=== PATIENT | male | born 1955 | race Caucasian/White ===

== ENCOUNTER → 2016-10-12 | Outpatient (REF) | payer OTHER ==
[~2016-10-12] MED LIST: /ATOR40TA OR; /FENO48TA PO; /TIOT18INH; ALBU17IN INH; AMIT100T PO; AMIT50TA2; AMIT75TA PO; AMLO5TAB2 PO; ATOR1TAB18 PO; AVALIDE PO; BACT800T5 PO; CLAR5CHW PO; COSOPT OU; COZA50TA PO; DORZOLAMIDE HCL; DOXY100C PO; DRIS50002 PO; GABA300C2 PO; GABA600T3 PO; GLIM4TAB PO; HYDR25T PO; HYDR25TAB PO; INSULADS SC; LEVEMIR FLEX PEN; LEVEMIR FLEX PEN SQ; LOSA50TA20 PO; LYRI150C PO; METF500T4 PO; METFPOW4; MUCINEX; MUCINEX PO; NASA1SPR; NASONEX; NOVOINJ3 SC; PERC5TAB6 PO; PREG100CA OR; PREG50CA OR; RYZOLT PO; SIMV40TA2; SIMV80TA; SING10TA31; SING10TA32 PO; SOMA350T; SOMA350T PO; STRO3TAB PO; TIZA4CAP3 PO; TRAM50TA2 PO; VENTAER INH; VICO5TAB; VICODINES TAB; VITAMIN D PO; XALATAN; [UNRECOGNIZED DRUG - OTHER] SUBQ; xalatan OU
[2016-10-12 18:33] LABS: ALBUMIN 3.1 GM/DL (3.2-5.2); ALBUMIN/GLOBULIN RATIO 0.84 (1.00-1.93); ALKALINE PHOSPHATASE 133 U/L (45-117); ALT/SGPT 49 U/L (12-78); ANION GAP 8 MEQ/L (8-16); AST/SGOT 27 U/L (15-37); BILIRUBIN,TOTAL 0.3 MG/DL (0.2-1.0); BLOOD UREA NITROGEN 19 MG/DL (7-18); CALCIUM LEVEL 8.6 MG/DL (8.8-10.2); CARBON DIOXIDE LEVEL 26 MEQ/L (21-32); CHLORIDE LEVEL 104 MEQ/L (98-107); CREATININE FOR GFR 1.17 MG/DL (0.70-1.30); GLOMERULAR FILTRATION RATE > 60.0 (>49); GLUCOSE, FASTING 335 MG/DL (80-110); POTASSIUM SERUM 4.4 MEQ/L (3.5-5.1); SODIUM LEVEL 138 MEQ/L (136-145); TOTAL PROTEIN 6.8 GM/DL (6.4-8.2)
[2016-10-12 18:49] LABS: BASO % 0.4 % (0.0-1.0); EOS # 0.1 K/mm3 (0.0-0.50); EOS % 1.3 % (0.0-3.0); LARGE UNSTAINED CELL # 0.2 K/mm3 (0.0-0.4); LARGE UNSTAINED CELL % 1.6 % (0.0-4.0); LYMPH # 2.3 K/mm3 (1.5-4.5); LYMPH % 24.4 % (24.0-44.0); MEAN CORPUSCULAR HEMOGLOBIN 27.7 pg (27.0-33.0); MEAN CORPUSCULAR VOLUME 89.3 fl (80.0-96.0); MONO # 0.4 K/mm3 (0.0-0.8); MONO % 4.7 % (0.0-5.0); NEUTROPHILS # 6.3 K/mm3 (1.8-7.7); NEUTROPHILS % 67.6 % (36.0-66.0); PLATELET COUNT, AUTOMATED 296 k/mm3 (150-450); RED CELL DISTRIBUTION WIDTH 13.1 % (11.5-14.5); WHITE BLOOD COUNT 9.3 K/mm3 (4.0-10.0)
[2016-10-12 19:51] LABS: ERYTHROCYTE SEDIMENTATION RATE 23 mm/hr (0-20)
== END ==
LOC: M LABNEURO 11:36
PROVIDERS: ATTEND Psychiatry & Neurology Neurology
DX: E11.9 Type 2 diabetes mellitus without complications (principal)

== ENCOUNTER → 2016-12-01 | Outpatient (CLI) | payer OTHER ==
[2016-12-01 08:01] LABS: ALBUMIN 3.2 GM/DL (3.2-5.2); ALBUMIN/GLOBULIN RATIO 0.84 (1.00-1.93); BILIRUBIN,TOTAL 0.3 MG/DL (0.2-1.0); CALCIUM LEVEL 8.5 MG/DL (8.8-10.2); CREATININE FOR GFR 1.3 MG/DL (0.70-1.30); GLOMERULAR FILTRATION RATE 59.9 (>49); POTASSIUM SERUM 4.6 MEQ/L (3.5-5.1)
== END ==
LOC: M LAB 06:45
PROVIDERS: ATTEND Physician Assistant
DX: E11.21 Type 2 diabetes mellitus with diabetic nephropathy (principal); E78.2 Mixed hyperlipidemia

== ENCOUNTER → 2016-12-01 | Outpatient (CLI) | payer OTHER ==
[2016-12-01 07:41] LABS: BASO % 0.5 % (0.0-1.0); EOS # 0.2 K/mm3 (0.0-0.50); EOS % 2.1 % (0.0-3.0); LARGE UNSTAINED CELL # 0.3 K/mm3 (0.0-0.4); LARGE UNSTAINED CELL % 2.8 % (0.0-4.0); LYMPH # 2.6 K/mm3 (1.5-4.5); LYMPH % 27.7 % (24.0-44.0); MEAN CORPUSCULAR HEMOGLOBIN 29.2 pg (27.0-33.0); MEAN CORPUSCULAR HGB CONC 32.2 g/dl (32.0-36.5); MEAN CORPUSCULAR VOLUME 90.8 fl (80.0-96.0); MONO # 0.5 K/mm3 (0.0-0.8); MONO % 5.6 % (0.0-5.0); NEUTROPHILS # 5.9 K/mm3 (1.8-7.7); NEUTROPHILS % 61.3 % (36.0-66.0); PLATELET COUNT, AUTOMATED 261 k/mm3 (150-450); RED CELL DISTRIBUTION WIDTH 13.9 % (11.5-14.5); WHITE BLOOD COUNT 9.6 K/mm3 (4.0-10.0)
[2016-12-01 07:59] LABS: ALBUMIN 3.2 GM/DL (3.2-5.2); ANION GAP 9 MEQ/L (8-16); BLOOD UREA NITROGEN 30 MG/DL (7-18); CALCIUM LEVEL 8.5 MG/DL (8.8-10.2); CARBON DIOXIDE LEVEL 22 MEQ/L (21-32); CHLORIDE LEVEL 109 MEQ/L (98-107); CREATININE FOR GFR 1.29 MG/DL (0.70-1.30); GLOMERULAR FILTRATION RATE > 60.0 (>49); GLUCOSE, FASTING 169 MG/DL (80-110); PHOSPHORUS LEVEL 3.1 MG/DL (2.5-4.9); POTASSIUM SERUM 4.7 MEQ/L (3.5-5.1); SODIUM LEVEL 140 MEQ/L (136-145)
== END ==
LOC: M LAB 06:50
PROVIDERS: ATTEND Internal Medicine Nephrology
DX: N18.3 Chronic kidney disease, stage 3 (moderate) (principal); D64.9 Anemia, unspecified

== ENCOUNTER → 2016-12-29 | Outpatient (CLI) | payer OTHER ==
[~2016-12-29] MED LIST changes: +OXYC1TAB23 PO; +TOUJ1.2I SC
[2016-12-29 13:43] LABS: MEAN CORPUSCULAR HEMOGLOBIN 28.6 pg (27.0-33.0); MEAN CORPUSCULAR HGB CONC 32.4 g/dl (32.0-36.5); MEAN CORPUSCULAR VOLUME 88.5 fl (80.0-96.0); RED CELL DISTRIBUTION WIDTH 13.8 % (11.5-14.5); WHITE BLOOD COUNT 10.3 K/mm3 (4.0-10.0)
[2016-12-29 16:04] LABS: CALCIUM LEVEL 8.8 MG/DL (8.8-10.2); CREATININE FOR GFR 1.38 MG/DL (0.70-1.30); GLOMERULAR FILTRATION RATE 55.8 (>49); POTASSIUM SERUM 4.3 MEQ/L (3.5-5.1)
== END ==
LOC: M LAB 13:00
PROVIDERS: ATTEND Podiatrist Foot & Ankle Surgery
DX: L03.031 Cellulitis of right toe (principal)

== ENCOUNTER → 2017-01-03 | Day surgery (SDC) | payer OTHER ==
[~2017-01-03] VITALS: Ht 175.3 cm; Wt 129.7 kg
[~2017-01-03] MED LIST changes: +BUPIVACAINE HCL 0.5% 10 ML VIAL As Ordered ONE; +KETOROLAC 60 MG/2 ML VIAL (J1885) As Ordered ONE; +LIDOCAINE 1% MDV 20ML VIAL As Ordered ONE; +LR 1,000 ML IV ONE; +MIDAZOLAM INJ 2 MG/2 ML VIAL (J2250) As Ordered ONE; +ONDANSETRON 4MG/2ML VIAL (J2405) As Ordered ONE; +PROPOFOL 200 MG/20 ML VIAL As Ordered ONE; +dexameTHASONE 4 MG/ML 1ML VIAL (J1100) As Ordered ONE; +fentaNYL 100 MCG/2 ML INJECTION (J3010) As Ordered ONE
[2017-01-03] MEDS: dexameTHASONE 4 MG/ML 1ML VIAL (J1100) As Ordered ONE ×2 (10:27→11:17)
[2017-01-03 13:30] VITALS: BP 172/77
--- NOTE | 2017-01-03 23:37 | RO ---
DATE OF PROCEDURE: 01/03/2017 PREPROCEDURE DIAGNOSIS: Right foot 2nd toe osteomyelitis. POSTPROCEDURE DIAGNOSIS: Right foot 2nd toe osteomyelitis. PROCEDURE: Right 2nd toe partial amputation. SURGEON: Pasha Figueroa DPM TROUBLE OPERATOR: None. ANESTHESIA: Monitored anesthesia care with perioperative injection of 10 mL of 1:1 mixture of 1% lidocaine plain and 0.5% Marcaine plain. ESTIMATED BLOOD LOSS: Minimal. MATERIALS: #3-0 nylon. INJECTABLES: None. COMPLICATIONS: None. SPECIMEN: Right 2nd toe. CONDITION: Stable. Jordan Sullivan is a 61-year-old male who presented to [facility] with right 2nd toe wound. In the office, wound was noted to be progressively worsening, had positive probe to bone with necrosis at the distal toe; decision was made to bring him to the operating room for 2nd toe amputation. The patient's side and site were identified and marked in the preoperative holding area. Consent was reviewed and obtained. All risks, complications and alternatives to the procedure were explained to the patient in detail. All questions were answered. DESCRIPTION OF PROCEDURE: The patient was brought to the operating room, placed on the operating table in supine position, monitored anesthesia care was delivered by the anesthesia team. Perioperative injection of 10 mL of a 1:1 mixture of 1% lidocaine plain and 0.5% Marcaine plain were injected into the right foot. The right foot was prepped and draped in the normal sterile fashion. A tourniquet was applied but not inflated during the procedure. The patient received Ancef preoperatively. A racquet-type incision was made at the 2nd toe, and the 2nd toe was disarticulated using a #15 blade at the proximal interphalangeal joint. The middle and proximal phalanx appeared free of infection. There was necrotic tissue noted at the distal phalanx with some erosion to the bone. This was sent for pathology. The head of the proximal phalanx was resected with bone cutter for closure purposes due to location of wound. Site was irrigated with normal saline and debrided free of any further necrotic tissue. Once wound appeared clean, this was closed using #3-0 nylon. Sterile dressing were applied. The patient was brought to the post-anesthesia care unit (PACU), vital signs stable, neurovascular status intact. He will be weightbearing as tolerated with followup in 2 days.
== END | disposition home or self-care (01) ==
LOC: M SDC 08:30
PROVIDERS: ATTEND Podiatrist Foot & Ankle Surgery
DX: L03.031 Cellulitis of right toe (principal); I12.9 Hypertensive chronic kidney disease with stage 1 through stage 4 chronic kidney disease, or unspecified chronic kidney disease; E11.9 Type 2 diabetes mellitus without complications; N18.3 Chronic kidney disease, stage 3 (moderate); E78.5 Hyperlipidemia, unspecified; J44.9 Chronic obstructive pulmonary disease, unspecified; Z91.040 Latex allergy status; Z88.8 Allergy status to other drugs, medicaments and biological substances; Z79.899 Other long term (current) drug therapy; Z87.891 Personal history of nicotine dependence; Z79.51 Long term (current) use of inhaled steroids

== ENCOUNTER → 2017-03-03 | Outpatient (CLI) | payer OTHER ==
[~2017-03-03] MED LIST changes: -ATOR1TAB18 PO; +ATOR80TA59 PO; -BUPIVACAINE HCL 0.5% 10 ML VIAL As Ordered ONE; +HYDR-3363 PO; -HYDR25T PO; -KETOROLAC 60 MG/2 ML VIAL (J1885) As Ordered ONE; -LIDOCAINE 1% MDV 20ML VIAL As Ordered ONE; -LR 1,000 ML IV ONE; -MIDAZOLAM INJ 2 MG/2 ML VIAL (J2250) As Ordered ONE; -ONDANSETRON 4MG/2ML VIAL (J2405) As Ordered ONE; +PERC5TAB12 PO; -PERC5TAB6 PO; -PROPOFOL 200 MG/20 ML VIAL As Ordered ONE; -dexameTHASONE 4 MG/ML 1ML VIAL (J1100) As Ordered ONE; -fentaNYL 100 MCG/2 ML INJECTION (J3010) As Ordered ONE
[2017-03-03 10:41] LABS: BASO % 0.5 % (0.0-1.0); EOS # 0.1 K/mm3 (0.0-0.50); EOS % 1.6 % (0.0-3.0); LYMPH # 1.9 K/mm3 (1.5-4.5); LYMPH % 22.9 % (24.0-44.0); MEAN CORPUSCULAR HEMOGLOBIN 29.2 pg (27.0-33.0); MEAN CORPUSCULAR HGB CONC 32.5 g/dl (32.0-36.5); MEAN CORPUSCULAR VOLUME 89.9 fl (80.0-96.0); MONO # 0.4 K/mm3 (0.0-0.8); NEUTROPHILS # 5.6 K/mm3 (1.8-7.7); NEUTROPHILS % 67.7 % (36.0-66.0); RED CELL DISTRIBUTION WIDTH 13.9 % (11.5-14.5); WHITE BLOOD COUNT 8.3 K/mm3 (4.0-10.0)
[2017-03-03 11:08] LABS: ALBUMIN 3.1 GM/DL (3.2-5.2); ALBUMIN/GLOBULIN RATIO 0.86 (1.00-1.93); ALKALINE PHOSPHATASE 128 U/L (45-117); ALT/SGPT 61 U/L (12-78); ANION GAP 9 MEQ/L (8-16); AST/SGOT 39 U/L (15-37); BILIRUBIN,TOTAL 0.4 MG/DL (0.2-1.0); BLOOD UREA NITROGEN 21 MG/DL (7-18); CALCIUM LEVEL 8.9 MG/DL (8.8-10.2); CARBON DIOXIDE LEVEL 27 MEQ/L (21-32); CHLORIDE LEVEL 109 MEQ/L (98-107); CHOLESTEROL LEVEL 163 MG/DL (<200); CREATININE FOR GFR 1.12 MG/DL (0.70-1.30); GLOMERULAR FILTRATION RATE > 60.0 (>49); GLUCOSE, FASTING 144 MG/DL (80-110); POTASSIUM SERUM 4.3 MEQ/L (3.5-5.1); SODIUM LEVEL 145 MEQ/L (136-145); TOTAL PROTEIN 6.7 GM/DL (6.4-8.2); TRIGLYCERIDES LEVEL 117 MG/DL (<150)
== END ==
LOC: M LAB 09:46
PROVIDERS: ATTEND Physician Assistant Medical
DX: E11.9 Type 2 diabetes mellitus without complications (principal)

== ENCOUNTER → 2017-04-29 | Outpatient (CLI) | payer OTHER ==
[2017-04-29 08:21] LABS: BASO # 0.1 10^3/uL (0.0-0.2); BASO % 0.5 % (0.0-1.0); EOS # 0.2 10^3/uL (0.0-0.50); EOS % 1.9 % (0.0-3.0); IMMATURE GRANULOCYTE % 0.6 % (0-0); LYMPH # 2.8 10^3/uL (1.5-4.5); LYMPH % 28.8 % (24.0-44.0); MEAN CORPUSCULAR HEMOGLOBIN 28.4 pg (27.0-33.0); MEAN CORPUSCULAR HGB CONC 31.6 g/dl (32.0-36.5); MEAN CORPUSCULAR VOLUME 89.9 fl (80.0-96.0); MONO # 0.7 10^3/uL (0.0-0.8); MONO % 6.7 % (0.0-5.0); NEUTROPHILS # 6.1 10^3/uL (1.8-7.7); NEUTROPHILS % 61.5 % (36.0-66.0); RED CELL DISTRIBUTION WIDTH 13.5 % (11.5-14.5); WHITE BLOOD COUNT 9.8 10^3/uL (4.0-10.0)
[2017-04-29 08:59] LABS: CALCIUM LEVEL 8.4 MG/DL (8.8-10.2); CREATININE FOR GFR 1.35 MG/DL (0.70-1.30); GLOMERULAR FILTRATION RATE 57.2 (>49); POTASSIUM SERUM 4.6 MEQ/L (3.5-5.1)
[2017-04-29 09:00] LABS: ALBUMIN 3.1 GM/DL (3.2-5.2); ALBUMIN/GLOBULIN RATIO 0.91 (1.00-1.93); BILIRUBIN,TOTAL 0.2 MG/DL (0.2-1.0); TOTAL PROTEIN 6.5 GM/DL (6.4-8.2)
== END ==
LOC: M LAB 07:31
PROVIDERS: ATTEND Physician Assistant Medical
DX: E11.9 Type 2 diabetes mellitus without complications (principal)

== ENCOUNTER → 2017-09-16 | Outpatient (CLI) | payer OTHER ==
[2017-09-16 07:14] LABS: HEMATOCRIT 43.8 % (42.0-52.0); HEMOGLOBIN 14.1 g/dl (14.0-18.0); MEAN CORPUSCULAR HGB CONC 32.2 g/dl (32.0-36.5); MEAN CORPUSCULAR VOLUME 86.9 fl (80.0-96.0); PLATELET COUNT, AUTOMATED 297 10^3/uL (150-450); RED BLOOD COUNT 5.04 10^6/uL (4.30-6.10); RED CELL DISTRIBUTION WIDTH 13.2 % (11.5-14.5); WHITE BLOOD COUNT 10.9 10^3/uL (4.0-10.0)
[2017-09-16 07:32] LABS: ESTIMATED AVERAGE GLUCOSE 169 MG/DL (60-110); HEMOGLOBIN A1c 7.5 %
[2017-09-16 07:45] LABS: ALBUMIN/GLOBULIN RATIO 0.86 (1.00-1.93); ALKALINE PHOSPHATASE 134 U/L (45-117); ALT/SGPT 58 U/L (12-78); ANION GAP 8 MEQ/L (8-16); AST/SGOT 38 U/L (7-37); BILIRUBIN,TOTAL 0.3 MG/DL (0.2-1.0); BLOOD UREA NITROGEN 24 MG/DL (7-18); CALCIUM LEVEL 8.6 MG/DL (8.8-10.2); CARBON DIOXIDE LEVEL 27 MEQ/L (21-32); CHLORIDE LEVEL 107 MEQ/L (98-107); CHOLESTEROL LEVEL 162 MG/DL (<200); CREATININE FOR GFR 1.13 MG/DL (0.70-1.30); GLOMERULAR FILTRATION RATE > 60.0 (>49); GLUCOSE, FASTING 153 MG/DL (70-100); HDL CHOLESTEROL 45 MG/DL (>40); LDL CHOLESTEROL 73.6 MG/DL (<100); NON-HDL-C 117 MG/DL; POTASSIUM SERUM 4.5 MEQ/L (3.5-5.1); PROSTATIC SPECIFIC AG MONITOR 0.36 NG/ML (< 4.0); SODIUM LEVEL 142 MEQ/L (136-145); TOTAL PROTEIN 6.5 GM/DL (6.4-8.2); TRIGLYCERIDES LEVEL 217 MG/DL (<150)
[2017-09-16 08:41] LABS: TOTAL 25(OH) VITAMIN D 30.2 NG/ML (30.0-100.0)
== END ==
LOC: M LAB 06:19
DX: I10 Essential (primary) hypertension (principal); E11.9 Type 2 diabetes mellitus without complications
CPT/HCPCS: 71046

== ENCOUNTER 2018-04-26 13:07 | Inpatient (IN) | payer OTHER ==
[2018-04-26] MEDS: NS 1,000 ML IV ×4 (14:00→18:54)
[2018-04-26] MEDS: INSULIN HUMAN REGULAR 100 UNITS in NS 99 ML IV ×2 (14:17→18:00)
[2018-04-26] MEDS ORDERED: INSULIN HUMAN REGULAR 100 UNITS in NS 99 ML IV ×2 (14:30→15:35)
[2018-04-26 14:45] LABS: BASO # 0.1 10^3/uL (0.0-0.2); BASO % 0.4 % (0.0-1.0); EOS # 0.1 10^3/uL (0.0-0.50); EOS % 0.5 % (0.0-3.0); HEMATOCRIT 44.9 % (42.0-52.0); IMMATURE GRANULOCYTE % 0.5 % (0-3.0); LYMPH # 2.7 10^3/uL (1.5-4.5); LYMPH % 20.3 % (24.0-44.0); MEAN CORPUSCULAR HEMOGLOBIN 28.6 pg (27.0-33.0); MEAN CORPUSCULAR HGB CONC 33.4 g/dl (32.0-36.5); MEAN CORPUSCULAR VOLUME 85.7 fl (80.0-96.0); MONO # 0.8 10^3/uL (0.0-0.8); MONO % 6.1 % (0.0-5.0); NEUTROPHILS # 9.5 10^3/uL (1.8-7.7); NEUTROPHILS % 72.2 % (36.0-66.0); PLATELET COUNT, AUTOMATED 217 10^3/uL (150-450); RED BLOOD COUNT 5.24 10^6/uL (4.30-6.10); WHITE BLOOD COUNT 13.1 10^3/uL (4.0-10.0)
[2018-04-26 14:51] LABS: KETONE, URINE AUTO RFX TRACE mg/dL (NEGATIVE); LEUKOCYTE ESTERASE UR AUTO RFX NEGATIVE (NEGATIVE); NITRITE, URINE AUTO RFX NEGATIVE (NEGATIVE); RBC, URINE AUTO RFX 15 /HPF (0-3); SPECIFIC GRAVITY UR AUTO RFX 1.021 (1.002-1.035); SQUAM EPITHELIAL CELL UR AURFX 0 /HPF (0-6); WBC, URINE AUTO RFX 0 /HPF (0-3)
[2018-04-26 15:10] LABS: AMPHETAMINES LEVEL URINE NEGATIVE (NEGATIVE); BARBITURATES URINE NEGATIVE (NEGATIVE); BENZODIAZEPINES URINE NEGATIVE (NEGATIVE); CANNABINOIDS URINE POSITIVE (NEGATIVE); COCAINE METABOLITE URINE NEGATIVE (NEGATIVE); METHADONE URINE NEGATIVE (NEGATIVE); OPIATES URINE NEGATIVE (NEGATIVE); PHENCYCLIDINE URINE NEGATIVE (NEGATIVE)
[2018-04-26 15:15] LABS: ACETAMINOPHEN LEVEL < 2.0 UG/ML (10.0-30.0); ALBUMIN 3.5 GM/DL (3.2-5.2); ALBUMIN/GLOBULIN RATIO 0.97 (1.00-1.93); ALKALINE PHOSPHATASE 125 U/L (45-117); ALT/SGPT 52 U/L (12-78); ANION GAP 17 MEQ/L (8-16); AST/SGOT 26 U/L (7-37); BILIRUBIN,DIRECT 0.2 MG/DL (0.0-0.2); BILIRUBIN,TOTAL 0.6 MG/DL (0.2-1.0); BLOOD UREA NITROGEN 45 MG/DL (7-18); CALCIUM LEVEL 9.6 MG/DL (8.8-10.2); CARBON DIOXIDE LEVEL 19 MEQ/L (21-32); CHLORIDE LEVEL 90 MEQ/L (98-107); CPK CREATINE PHOSPHOKINASE 545 U/L (39-308); CREATININE FOR GFR 1.69 MG/DL (0.70-1.30); ETHYL ALCOHOL (ETHANOL) < 0.003 % (0.000-0.010); GLUCOSE, FASTING 817 MG/DL (70-100); LIPASE 165 U/L (73-393); MB/CK RELATIVE INDEX 1.93 (< OR =4); POTASSIUM SERUM 5.5 MEQ/L (3.5-5.1); SALICYLATE LEVEL 3.1 MG/DL (5.0-30.0); SODIUM LEVEL 126 MEQ/L (136-145); TOTAL PROTEIN 7.1 GM/DL (6.4-8.2); TROPONIN I 0.04 NG/ML (< 0.10)
[2018-04-26 15:17] LABS: VENOUS BASE EXCESS -4.2 (-2.0-2.0); VENOUS HCO3 20.3 MEQ/L (23.0-27.0); VENOUS O2 SATURATION 97.5 % (60.0-80.0); VENOUS PARTIAL PRESSURE CO2 35.7 mmHg (38.0-50.0); VENOUS PARTIAL PRESSURE O2 100.5 mmHg (30.0-50.0); VENOUS PH 7.372 UNITS (7.330-7.430); VENOUS TOTAL CO2 21.4 MEQ/L (24.0-28.0)
[2018-04-26] MEDS ORDERED: INSULIN IV RATE CHANGE DOCUMENTATION ML/HR XX (15:45)
[2018-04-26 16:02] LABS: ESTIMATED AVERAGE GLUCOSE 344 MG/DL (60-110); HEMOGLOBIN A1c 13.6 %
[2018-04-26 16:52] LABS: BEDSIDE GLUCOSE 500 MG/DL (80-115)
[2018-04-26] MEDS: INSULIN IV RATE CHANGE DOCUMENTATION ML/HR XX ×5 (17:03→23:19)
[2018-04-26 17:25] LABS: OSMOLALITY SERUM 321 MOSM/KG (280-301)
[2018-04-26 17:30] LABS: BEDSIDE GLUCOSE 470 MG/DL (80-115)
[2018-04-26] MEDS ORDERED: ALBUTEROL 90 MCG/ACT 8GM HFA INHALER INH (17:45)
[2018-04-26 17:47] LABS: ACETONE/KETONE 26.83 MG/DL (<2.81)
[2018-04-26 17:47] LABS: URIC ACID 9.8 MG/DL (3.5-7.2)
[2018-04-26 18:14] LABS: BEDSIDE GLUCOSE 481 MG/DL (80-115)
[2018-04-26] MEDS: amLODIPine 10 MG TAB PO (18:53)
[2018-04-26] MEDS: ATENOLOL 50 MG TAB PO (18:53)
[2018-04-26] MEDS: LOSARTAN 50 MG TAB PO (18:54)
[2018-04-26 19:01] LABS: LACTIC ACID SEPSIS PROTOCOL 1.5 MMOL/L (0.4-2.0)
[2018-04-26 19:03] LABS: BEDSIDE GLUCOSE 366 MG/DL (80-115)
[2018-04-26 19:24] LABS: ANION GAP 10 MEQ/L (8-16); BLOOD UREA NITROGEN 38 MG/DL (7-18); CALCIUM LEVEL 8.6 MG/DL (8.8-10.2); CARBON DIOXIDE LEVEL 23 MEQ/L (21-32); CHLORIDE LEVEL 104 MEQ/L (98-107); CPK CREATINE PHOSPHOKINASE 461 U/L (39-308); CREATININE FOR GFR 1.51 MG/DL (0.70-1.30); GLOMERULAR FILTRATION RATE 50.1 (>49); GLUCOSE, FASTING 363 MG/DL (70-100); MB/CK RELATIVE INDEX 1.87 (< OR =4); PHOSPHORUS LEVEL 2.8 MG/DL (2.5-4.9); POTASSIUM SERUM 3.9 MEQ/L (3.5-5.1); SODIUM LEVEL 137 MEQ/L (136-145); TROPONIN I < 0.02 NG/ML (< 0.10)
[2018-04-26 20:11] LABS: BEDSIDE GLUCOSE 330 MG/DL (80-115)
[2018-04-26 20:51] LABS: ANION GAP 10 MEQ/L (8-16); BLOOD UREA NITROGEN 40 MG/DL (7-18); CALCIUM LEVEL 8.8 MG/DL (8.8-10.2); CARBON DIOXIDE LEVEL 23 MEQ/L (21-32); CHLORIDE LEVEL 104 MEQ/L (98-107); CREATININE FOR GFR 1.34 MG/DL (0.70-1.30); GLOMERULAR FILTRATION RATE 57.5 (>49); GLUCOSE, FASTING 313 MG/DL (70-100); POTASSIUM SERUM 3.9 MEQ/L (3.5-5.1); SODIUM LEVEL 137 MEQ/L (136-145)
[2018-04-26] MEDS: AMITRIPTYLINE 25 MG TAB PO (21:00)
[2018-04-26] MEDS: CEPHALEXIN 500 MG CAP PO (21:00)
[2018-04-26 21:08] LABS: BEDSIDE GLUCOSE 324 MG/DL (80-115)
[2018-04-26] MEDS: PREGABALIN 75 MG CAP(LYRICA) PO (21:16)
[2018-04-26] MEDS: HEPARIN SOD (PORCINE) 5000 UNITS/ML VIAL SC (21:18)
[2018-04-26] MEDS: ANEXSIA, NORCO 7.5MG/325MG TABLET(HYDROCODONE/APAP) PO (22:16)
[2018-04-26 22:18] LABS: BEDSIDE GLUCOSE 362 MG/DL (80-115)
[2018-04-26 22:55] LABS: ANION GAP 17 MEQ/L (8-16); BLOOD UREA NITROGEN 39 MG/DL (7-18); CALCIUM LEVEL 8.7 MG/DL (8.8-10.2); CARBON DIOXIDE LEVEL 22 MEQ/L (21-32); CHLORIDE LEVEL 122 MEQ/L (98-107); CREATININE FOR GFR 1.28 MG/DL (0.70-1.30); GLOMERULAR FILTRATION RATE > 60.0 (>49); GLUCOSE, FASTING 274 MG/DL (70-100); POTASSIUM SERUM 4.4 MEQ/L (3.5-5.1); SODIUM LEVEL 161 MEQ/L (136-145)
[2018-04-26 23:20] LABS: BEDSIDE GLUCOSE 220 MG/DL (80-115)
[2018-04-27 00:10] LABS: BEDSIDE GLUCOSE 245 MG/DL (80-115)
[2018-04-27] MEDS ORDERED: FLUBLOK(EGG FREE)(QUAD)INFLUENZA VACC 0.5ML SYRINGE (90682)18YRS&OLDER IM (00:15)
[2018-04-27 01:03] LABS: ANION GAP 8 MEQ/L (8-16); BLOOD UREA NITROGEN 37 MG/DL (7-18); CARBON DIOXIDE LEVEL 22 MEQ/L (21-32); CHLORIDE LEVEL 108 MEQ/L (98-107); CREATININE FOR GFR 1.25 MG/DL (0.70-1.30); GLOMERULAR FILTRATION RATE > 60.0 (>49); GLUCOSE, FASTING 254 MG/DL (70-100); POTASSIUM SERUM 3.9 MEQ/L (3.5-5.1); SODIUM LEVEL 138 MEQ/L (136-145)
[2018-04-27 02:19] LABS: BEDSIDE GLUCOSE 268 MG/DL (80-115)
[2018-04-27 03:07] LABS: ANION GAP 11 MEQ/L (8-16); BLOOD UREA NITROGEN 39 MG/DL (7-18); CALCIUM LEVEL 8.6 MG/DL (8.8-10.2); CARBON DIOXIDE LEVEL 22 MEQ/L (21-32); CHLORIDE LEVEL 106 MEQ/L (98-107); CPK CREATINE PHOSPHOKINASE 340 U/L (39-308); CREATININE FOR GFR 1.28 MG/DL (0.70-1.30); GLOMERULAR FILTRATION RATE > 60.0 (>49); GLUCOSE, FASTING 263 MG/DL (70-100); MB/CK RELATIVE INDEX 1.65 (< OR =4); POTASSIUM SERUM 4.2 MEQ/L (3.5-5.1); SODIUM LEVEL 139 MEQ/L (136-145); TROPONIN I 0.03 NG/ML (< 0.10)
[2018-04-27] MEDS: NS 1,000 ML IV ×4 (03:38→20:19)
[2018-04-27 03:53] LABS: BEDSIDE GLUCOSE 320 MG/DL (80-115)
[2018-04-27] MEDS: INSULIN IV RATE CHANGE DOCUMENTATION ML/HR XX ×2 (03:58→04:51)
[2018-04-27] MEDS: THIAMINE HCL 200 MG/2 ML VIAL (J3411) IV ×2 (04:00→09:22)
[2018-04-27 04:10] LABS: OSMOLALITY URINE 568 MOSM/KG (500-800)
[2018-04-27 04:49] LABS: BEDSIDE GLUCOSE 294 MG/DL (80-115)
[2018-04-27 05:42] LABS: BEDSIDE GLUCOSE 249 MG/DL (80-115)
[2018-04-27 05:47] LABS: ANION GAP 9 MEQ/L (8-16); BLOOD UREA NITROGEN 38 MG/DL (7-18); CALCIUM LEVEL 8.4 MG/DL (8.8-10.2); CARBON DIOXIDE LEVEL 24 MEQ/L (21-32); CHLORIDE LEVEL 106 MEQ/L (98-107); CREATININE FOR GFR 1.17 MG/DL (0.70-1.30); GLOMERULAR FILTRATION RATE > 60.0 (>49); GLUCOSE, FASTING 262 MG/DL (70-100); POTASSIUM SERUM 3.9 MEQ/L (3.5-5.1); SODIUM LEVEL 139 MEQ/L (136-145)
[2018-04-27] MEDS: HEPARIN SOD (PORCINE) 5000 UNITS/ML VIAL SC ×3 (06:33→21:36)
[2018-04-27] MEDS: LEVOTHYROXINE 75MCG TABLET (0.075MG) PO (06:33)
[2018-04-27 06:37] LABS: BEDSIDE GLUCOSE 281 MG/DL (80-115)
[2018-04-27] MEDS: INSULIN HUMAN REGULAR 100 UNITS in NS 99 ML IV (06:38)
[2018-04-27 07:00] LABS: ANION GAP 8 MEQ/L (8-16); BLOOD UREA NITROGEN 35 MG/DL (7-18); CALCIUM LEVEL 8.5 MG/DL (8.8-10.2); CARBON DIOXIDE LEVEL 24 MEQ/L (21-32); CHLORIDE LEVEL 108 MEQ/L (98-107); CREATININE FOR GFR 1.15 MG/DL (0.70-1.30); GLOMERULAR FILTRATION RATE > 60.0 (>49); GLUCOSE, FASTING 271 MG/DL (70-100); POTASSIUM SERUM 4.1 MEQ/L (3.5-5.1); SODIUM LEVEL 140 MEQ/L (136-145)
[2018-04-27] MEDS: INSULIN GLARGINE SC (07:00)
[2018-04-27 07:50] LABS: HEMATOCRIT 40.3 % (42.0-52.0); HEMOGLOBIN 13.3 g/dl (13.5-17.5); MEAN CORPUSCULAR HEMOGLOBIN 28.2 pg (27.0-33.0); MEAN CORPUSCULAR VOLUME 85.4 fl (80.0-96.0); PLATELET COUNT, AUTOMATED 229 10^3/uL (150-450); RED BLOOD COUNT 4.72 10^6/uL (4.30-6.10); WHITE BLOOD COUNT 12.6 10^3/uL (4.0-10.0)
[2018-04-27 08:12] LABS: BEDSIDE GLUCOSE 254 MG/DL (80-115)
[2018-04-27] MEDS: D5W/0.45% SODIUM CHLORIDE 1,000 ML IV (08:18)
[2018-04-27] MEDS ORDERED: LOSARTAN 50 MG TAB PO (09:00)
[2018-04-27] MEDS ORDERED: amLODIPine 10 MG TAB PO (09:00)
[2018-04-27 09:20] LABS: BEDSIDE GLUCOSE 255 MG/DL (80-115)
[2018-04-27] MEDS: ATORVASTATIN 20 MG TAB PO (09:21)
[2018-04-27] MEDS: TAMSULOSIN 0.4 MG CAP PO (09:21)
[2018-04-27] MEDS: CLOPIDOGREL 75 MG TAB PO (09:21)
[2018-04-27] MEDS: CEPHALEXIN 500 MG CAP PO ×4 (09:22→20:19)
[2018-04-27] MEDS: LACTIC ACID 12% LOTION 225 GM BTL TOP (09:22)
[2018-04-27 10:24] LABS: BEDSIDE GLUCOSE 270 MG/DL (80-115)
[2018-04-27 11:21] LABS: BEDSIDE GLUCOSE 268 MG/DL (80-115)
[2018-04-27] MEDS: MELOXICAM (MOBIC) 7.5 MG TAB PO (11:22)
[2018-04-27 11:29] LABS: ANION GAP 8 MEQ/L (8-16); BLOOD UREA NITROGEN 37 MG/DL (7-18); CALCIUM LEVEL 8.9 MG/DL (8.8-10.2); CARBON DIOXIDE LEVEL 26 MEQ/L (21-32); CHLORIDE LEVEL 105 MEQ/L (98-107); CPK CREATINE PHOSPHOKINASE 323 U/L (39-308); CREATININE FOR GFR 1.24 MG/DL (0.70-1.30); GLOMERULAR FILTRATION RATE > 60.0 (>49); GLUCOSE, FASTING 254 MG/DL (70-100); POTASSIUM SERUM 4.4 MEQ/L (3.5-5.1); SODIUM LEVEL 139 MEQ/L (136-145); TROPONIN I 0.02 NG/ML (< 0.10)
[2018-04-27 12:07] LABS: BEDSIDE GLUCOSE 321 MG/DL (80-115)
[2018-04-27 14:00] LABS: BEDSIDE GLUCOSE 294 MG/DL (80-115)
[2018-04-27 14:49] LABS: ANION GAP 9 MEQ/L (8-16); BLOOD UREA NITROGEN 31 MG/DL (7-18); CALCIUM LEVEL 8.5 MG/DL (8.8-10.2); CARBON DIOXIDE LEVEL 23 MEQ/L (21-32); CHLORIDE LEVEL 105 MEQ/L (98-107); CREATININE FOR GFR 1.22 MG/DL (0.70-1.30); GLOMERULAR FILTRATION RATE > 60.0 (>49); GLUCOSE, FASTING 294 MG/DL (70-100); POTASSIUM SERUM 4.6 MEQ/L (3.5-5.1); SODIUM LEVEL 137 MEQ/L (136-145)
[2018-04-27 15:14] LABS: BEDSIDE GLUCOSE 285 MG/DL (80-115)
[2018-04-27 16:25] LABS: BEDSIDE GLUCOSE 284 MG/DL (80-115)
[2018-04-27 16:55] LABS: ANION GAP 7 MEQ/L (8-16); BLOOD UREA NITROGEN 29 MG/DL (7-18); CALCIUM LEVEL 8.5 MG/DL (8.8-10.2); CARBON DIOXIDE LEVEL 25 MEQ/L (21-32); CHLORIDE LEVEL 105 MEQ/L (98-107); CREATININE FOR GFR 1.17 MG/DL (0.70-1.30); GLOMERULAR FILTRATION RATE > 60.0 (>49); GLUCOSE, FASTING 288 MG/DL (70-100); POTASSIUM SERUM 4.2 MEQ/L (3.5-5.1); SODIUM LEVEL 137 MEQ/L (136-145)
[2018-04-27 17:35] LABS: BEDSIDE GLUCOSE 273 MG/DL (80-115)
[2018-04-27 18:16] LABS: BEDSIDE GLUCOSE 280 MG/DL (80-115)
[2018-04-27 18:55] LABS: BEDSIDE GLUCOSE 257 MG/DL (80-115)
[2018-04-27 19:00] LABS: ANION GAP 10 MEQ/L (8-16); BLOOD UREA NITROGEN 33 MG/DL (7-18); CALCIUM LEVEL 9.1 MG/DL (8.8-10.2); CARBON DIOXIDE LEVEL 22 MEQ/L (21-32); CHLORIDE LEVEL 106 MEQ/L (98-107); CREATININE FOR GFR 1.19 MG/DL (0.70-1.30); GLOMERULAR FILTRATION RATE > 60.0 (>49); GLUCOSE, FASTING 272 MG/DL (70-100); POTASSIUM SERUM 4.3 MEQ/L (3.5-5.1); SODIUM LEVEL 138 MEQ/L (136-145)
[2018-04-27] MEDS: ANEXSIA, NORCO 7.5MG/325MG TABLET(HYDROCODONE/APAP) PO (20:51)
[2018-04-27 21:01] LABS: BEDSIDE GLUCOSE 249 MG/DL (80-115)
[2018-04-27] MEDS: [UNRECOGNIZED DRUG - OTHER] SC (22:39)
[2018-04-28 00:01] LABS: BEDSIDE GLUCOSE 290 MG/DL (80-115)
[2018-04-28 01:18] LABS: ANION GAP 7 MEQ/L (8-16); BLOOD UREA NITROGEN 24 MG/DL (7-18); CALCIUM LEVEL 7.8 MG/DL (8.8-10.2); CARBON DIOXIDE LEVEL 24 MEQ/L (21-32); CHLORIDE LEVEL 107 MEQ/L (98-107); GLOMERULAR FILTRATION RATE > 60.0 (>49); GLUCOSE, FASTING 282 MG/DL (70-100); POTASSIUM SERUM 3.9 MEQ/L (3.5-5.1); SODIUM LEVEL 138 MEQ/L (136-145)
[2018-04-28] MEDS ORDERED: GLUCAGON FOR INJ 1 MG VIAL (J1610) SC (01:30)
[2018-04-28] MEDS ORDERED: GLUCOSE 4 GM CHEW TABLET PO (01:30)
[2018-04-28] MEDS ORDERED: DEXTROSE 50% 50 ML SYRINGE IV (01:30)
[2018-04-28] MEDS: PREGABALIN 75 MG CAP(LYRICA) PO ×3 (02:00→21:23)
[2018-04-28] MEDS: NS 1,000 ML IV (03:59)
[2018-04-28 05:01] LABS: HEMATOCRIT 43.7 % (42.0-52.0); HEMOGLOBIN 13.7 g/dl (13.5-17.5); MEAN CORPUSCULAR HEMOGLOBIN 27.8 pg (27.0-33.0); MEAN CORPUSCULAR HGB CONC 31.4 g/dl (32.0-36.5); MEAN CORPUSCULAR VOLUME 88.8 fl (80.0-96.0); PLATELET COUNT, AUTOMATED 182 10^3/uL (150-450); RED BLOOD COUNT 4.92 10^6/uL (4.30-6.10); WHITE BLOOD COUNT 11.2 10^3/uL (4.0-10.0)
[2018-04-28] MEDS: LEVOTHYROXINE 75MCG TABLET (0.075MG) PO (05:07)
[2018-04-28] MEDS: HEPARIN SOD (PORCINE) 5000 UNITS/ML VIAL SC ×3 (05:07→21:23)
[2018-04-28 05:16] LABS: ANION GAP 9 MEQ/L (8-16); BLOOD UREA NITROGEN 26 MG/DL (7-18); CARBON DIOXIDE LEVEL 21 MEQ/L (21-32); CHLORIDE LEVEL 109 MEQ/L (98-107); CREATININE FOR GFR 1.06 MG/DL (0.70-1.30); GLOMERULAR FILTRATION RATE > 60.0 (>49); GLUCOSE, FASTING 313 MG/DL (70-100); POTASSIUM SERUM 4.1 MEQ/L (3.5-5.1); SODIUM LEVEL 139 MEQ/L (136-145)
[2018-04-28 07:48] LABS: BEDSIDE GLUCOSE 265 MG/DL (80-115)
[2018-04-28] MEDS: TOUJEO 300 UNIT/ML SC ×2 (08:22→21:20)
[2018-04-28] MEDS: HumaLOG INSULIN (NovoLOG) PER UNIT SC ×4 (08:23→21:00)
[2018-04-28] MEDS: CLOPIDOGREL 75 MG TAB PO (08:24)
[2018-04-28] MEDS: CEPHALEXIN 500 MG CAP PO ×4 (08:24→21:22)
[2018-04-28] MEDS: THIAMINE HCL 200 MG/2 ML VIAL (J3411) IV (08:24)
[2018-04-28] MEDS: PRAVASTATIN 20 MG TAB PO (08:24)
[2018-04-28] MEDS: TAMSULOSIN 0.4 MG CAP PO (08:24)
[2018-04-28] MEDS: LACTIC ACID 12% LOTION 225 GM BTL TOP (08:25)
[2018-04-28] MEDS ORDERED: LEVEMIR (INSULIN DETEMIR) 1 UNITS/0.01ML SC (09:00)
[2018-04-28 09:42] LABS: BEDSIDE GLUCOSE > 600 MG/DL (80-115)
[2018-04-28 09:42] LABS: BEDSIDE GLUCOSE > 600 MG/DL (80-115)
[2018-04-28 09:42] LABS: BEDSIDE GLUCOSE > 600 MG/DL (80-115)
[2018-04-28] MEDS: MELOXICAM (MOBIC) 7.5 MG TAB PO (10:31)
[2018-04-28 11:49] LABS: BEDSIDE GLUCOSE 261 MG/DL (80-115)
[2018-04-28 17:19] LABS: BEDSIDE GLUCOSE 249 MG/DL (80-115)
[2018-04-28 20:19] LABS: BEDSIDE GLUCOSE 233 MG/DL (80-115)
[2018-04-28] MEDS: AMITRIPTYLINE 25 MG TAB PO (21:22)
[2018-04-29] MEDS: HEPARIN SOD (PORCINE) 5000 UNITS/ML VIAL SC ×3 (06:03→21:01)
[2018-04-29] MEDS: LEVOTHYROXINE 75MCG TABLET (0.075MG) PO (06:03)
[2018-04-29 06:48] LABS: BEDSIDE GLUCOSE 207 MG/DL (80-115)
[2018-04-29 07:14] LABS: HEMOGLOBIN 12.7 g/dl (13.5-17.5); MEAN CORPUSCULAR HEMOGLOBIN 28.3 pg (27.0-33.0); MEAN CORPUSCULAR HGB CONC 32.6 g/dl (32.0-36.5); MEAN CORPUSCULAR VOLUME 87.1 fl (80.0-96.0); PLATELET COUNT, AUTOMATED 181 10^3/uL (150-450); RED BLOOD COUNT 4.48 10^6/uL (4.30-6.10); WHITE BLOOD COUNT 8.7 10^3/uL (4.0-10.0)
[2018-04-29] MEDS: HumaLOG INSULIN (NovoLOG) PER UNIT SC ×4 (09:17→20:59)
[2018-04-29] MEDS: TOUJEO 300 UNIT/ML SC ×2 (09:17→20:59)
[2018-04-29] MEDS: TAMSULOSIN 0.4 MG CAP PO (09:18)
[2018-04-29] MEDS: PREGABALIN 75 MG CAP(LYRICA) PO ×2 (09:18→20:58)
[2018-04-29] MEDS: CLOPIDOGREL 75 MG TAB PO (09:18)
[2018-04-29] MEDS: LACTIC ACID 12% LOTION 225 GM BTL TOP (09:18)
[2018-04-29] MEDS: PRAVASTATIN 20 MG TAB PO (09:18)
[2018-04-29] MEDS: CEPHALEXIN 500 MG CAP PO ×4 (09:18→20:58)
[2018-04-29] MEDS: MELOXICAM (MOBIC) 7.5 MG TAB PO (09:18)
[2018-04-29] MEDS: LevoFLOXacin IV 750 MG in APPROPRIATE DILUENT 1 EA IV (09:19)
[2018-04-29 11:36] LABS: BEDSIDE GLUCOSE 119 MG/DL (80-115)
[2018-04-29] MEDS: THIAMINE HCL 200 MG/2 ML VIAL (J3411) IV (12:54)
[2018-04-29 13:29] LABS: C REACTIVE PROTEIN QUANTITATIV 0.43 MG/DL (0.00-0.30)
[2018-04-29 17:01] LABS: BEDSIDE GLUCOSE 127 MG/DL (80-115)
[2018-04-29 20:53] LABS: BEDSIDE GLUCOSE 137 MG/DL (80-115)
[2018-04-29] MEDS: AMITRIPTYLINE 25 MG TAB PO (20:58)
[2018-04-30] MEDS: LEVOTHYROXINE 75MCG TABLET (0.075MG) PO (05:37)
[2018-04-30] MEDS: HEPARIN SOD (PORCINE) 5000 UNITS/ML VIAL SC ×3 (05:37→21:57)
[2018-04-30] MEDS: ANEXSIA, NORCO 7.5MG/325MG TABLET(HYDROCODONE/APAP) PO ×2 (06:00→21:58)
[2018-04-30 06:12] LABS: HEMATOCRIT 39.2 % (42.0-52.0); HEMOGLOBIN 12.6 g/dl (13.5-17.5); MEAN CORPUSCULAR HEMOGLOBIN 28.4 pg (27.0-33.0); MEAN CORPUSCULAR HGB CONC 32.1 g/dl (32.0-36.5); MEAN CORPUSCULAR VOLUME 88.3 fl (80.0-96.0); PLATELET COUNT, AUTOMATED 186 10^3/uL (150-450); RED BLOOD COUNT 4.44 10^6/uL (4.30-6.10); RED CELL DISTRIBUTION WIDTH 13.2 % (11.5-14.5); WHITE BLOOD COUNT 8.2 10^3/uL (4.0-10.0)
[2018-04-30 06:33] LABS: ANION GAP 6 MEQ/L (8-16); BLOOD UREA NITROGEN 17 MG/DL (7-18); CALCIUM LEVEL 8.1 MG/DL (8.8-10.2); CARBON DIOXIDE LEVEL 24 MEQ/L (21-32); CHLORIDE LEVEL 115 MEQ/L (98-107); CREATININE FOR GFR 0.98 MG/DL (0.70-1.30); GLOMERULAR FILTRATION RATE > 60.0 (>49); GLUCOSE, FASTING 88 MG/DL (70-100); POTASSIUM SERUM 3.6 MEQ/L (3.5-5.1); SODIUM LEVEL 145 MEQ/L (136-145)
[2018-04-30] MEDS: HumaLOG INSULIN (NovoLOG) PER UNIT SC ×4 (07:27→21:00)
[2018-04-30 07:56] LABS: BEDSIDE GLUCOSE 68 MG/DL (80-115)
[2018-04-30] MEDS: TOUJEO 300 UNIT/ML SC ×2 (09:00→22:05)
[2018-04-30] MEDS: LevoFLOXacin IV 750 MG in APPROPRIATE DILUENT 1 EA IV (09:14)
[2018-04-30] MEDS: PREGABALIN 75 MG CAP(LYRICA) PO ×2 (09:15→20:15)
[2018-04-30] MEDS: PRAVASTATIN 20 MG TAB PO (09:15)
[2018-04-30] MEDS: LACTIC ACID 12% LOTION 225 GM BTL TOP (09:15)
[2018-04-30] MEDS: THIAMINE HCL 200 MG/2 ML VIAL (J3411) IV (09:15)
[2018-04-30] MEDS: TAMSULOSIN 0.4 MG CAP PO (09:16)
[2018-04-30] MEDS: CLOPIDOGREL 75 MG TAB PO (09:16)
[2018-04-30] MEDS: MELOXICAM (MOBIC) 7.5 MG TAB PO (09:16)
[2018-04-30] MEDS: CEPHALEXIN 500 MG CAP PO ×4 (09:16→20:16)
[2018-04-30 11:44] LABS: BEDSIDE GLUCOSE 129 MG/DL (80-115)
[2018-04-30 16:32] LABS: BEDSIDE GLUCOSE 238 MG/DL (80-115)
[2018-04-30] MEDS: AMITRIPTYLINE 25 MG TAB PO (20:16)
[2018-04-30 20:31] LABS: BEDSIDE GLUCOSE 232 MG/DL (80-115)
[2018-05-01] MEDS: LEVOTHYROXINE 75MCG TABLET (0.075MG) PO (05:44)
[2018-05-01] MEDS: HEPARIN SOD (PORCINE) 5000 UNITS/ML VIAL SC ×3 (05:44→20:58)
[2018-05-01] MEDS: ANEXSIA, NORCO 7.5MG/325MG TABLET(HYDROCODONE/APAP) PO ×2 (05:45→20:59)
[2018-05-01 06:30] LABS: HEMOGLOBIN 12.4 g/dl (13.5-17.5); MEAN CORPUSCULAR HEMOGLOBIN 28.5 pg (27.0-33.0); MEAN CORPUSCULAR HGB CONC 31.8 g/dl (32.0-36.5); MEAN CORPUSCULAR VOLUME 89.7 fl (80.0-96.0); PLATELET COUNT, AUTOMATED 179 10^3/uL (150-450); RED BLOOD COUNT 4.35 10^6/uL (4.30-6.10); RED CELL DISTRIBUTION WIDTH 13.3 % (11.5-14.5)
[2018-05-01 07:02] LABS: ANION GAP 6 MEQ/L (8-16); BLOOD UREA NITROGEN 18 MG/DL (7-18); CALCIUM LEVEL 7.9 MG/DL (8.8-10.2); CARBON DIOXIDE LEVEL 23 MEQ/L (21-32); CHLORIDE LEVEL 111 MEQ/L (98-107); CREATININE FOR GFR 1.19 MG/DL (0.70-1.30); GLOMERULAR FILTRATION RATE > 60.0 (>49); GLUCOSE, FASTING 274 MG/DL (70-100); POTASSIUM SERUM 3.8 MEQ/L (3.5-5.1); SODIUM LEVEL 140 MEQ/L (136-145)
[2018-05-01] MEDS: TOUJEO 300 UNIT/ML SC ×2 (08:45→21:00)
[2018-05-01] MEDS: MELOXICAM (MOBIC) 7.5 MG TAB PO (08:46)
[2018-05-01] MEDS: CEPHALEXIN 500 MG CAP PO (08:46)
[2018-05-01] MEDS: PREGABALIN 75 MG CAP(LYRICA) PO ×2 (08:46→20:10)
[2018-05-01] MEDS: CLOPIDOGREL 75 MG TAB PO (08:46)
[2018-05-01] MEDS: TAMSULOSIN 0.4 MG CAP PO (08:46)
[2018-05-01] MEDS: PRAVASTATIN 20 MG TAB PO (08:46)
[2018-05-01] MEDS: HumaLOG INSULIN (NovoLOG) PER UNIT SC ×4 (08:47→21:00)
[2018-05-01] MEDS: LACTIC ACID 12% LOTION 225 GM BTL TOP (08:47)
[2018-05-01] MEDS: LevoFLOXacin IV 750 MG in APPROPRIATE DILUENT 1 EA IV (08:47)
[2018-05-01] MEDS: THIAMINE HCL 200 MG/2 ML VIAL (J3411) IV (10:56)
[2018-05-01 11:52] LABS: BEDSIDE GLUCOSE 252 MG/DL (80-115)
[2018-05-01] MEDS: SENOKOT S TAB PO (13:08)
[2018-05-01 16:40] LABS: BEDSIDE GLUCOSE 171 MG/DL (80-115)
[2018-05-01] MEDS: AMITRIPTYLINE 25 MG TAB PO (20:10)
[2018-05-01 22:19] LABS: BEDSIDE GLUCOSE 255 MG/DL (80-115)
[2018-05-02] MEDS: HEPARIN SOD (PORCINE) 5000 UNITS/ML VIAL SC ×2 (05:57→12:21)
[2018-05-02] MEDS: LEVOTHYROXINE 75MCG TABLET (0.075MG) PO (05:57)
[2018-05-02 06:48] LABS: HEMATOCRIT 38.9 % (42.0-52.0); HEMOGLOBIN 12.4 g/dl (13.5-17.5); MEAN CORPUSCULAR HEMOGLOBIN 28.5 pg (27.0-33.0); MEAN CORPUSCULAR HGB CONC 31.9 g/dl (32.0-36.5); MEAN CORPUSCULAR VOLUME 89.4 fl (80.0-96.0); PLATELET COUNT, AUTOMATED 177 10^3/uL (150-450); RED BLOOD COUNT 4.35 10^6/uL (4.30-6.10); RED CELL DISTRIBUTION WIDTH 13.2 % (11.5-14.5); WHITE BLOOD COUNT 8.9 10^3/uL (4.0-10.0)
[2018-05-02 07:08] LABS: ANION GAP 7 MEQ/L (8-16); BLOOD UREA NITROGEN 17 MG/DL (7-18); CALCIUM LEVEL 8.2 MG/DL (8.8-10.2); CARBON DIOXIDE LEVEL 23 MEQ/L (21-32); CHLORIDE LEVEL 114 MEQ/L (98-107); CREATININE FOR GFR 1.01 MG/DL (0.70-1.30); GLOMERULAR FILTRATION RATE > 60.0 (>49); GLUCOSE, FASTING 112 MG/DL (70-100); POTASSIUM SERUM 3.7 MEQ/L (3.5-5.1); SODIUM LEVEL 144 MEQ/L (136-145)
[2018-05-02] MEDS: HumaLOG INSULIN (NovoLOG) PER UNIT SC ×2 (07:56→12:22)
[2018-05-02] MEDS: PRAVASTATIN 20 MG TAB PO (07:56)
[2018-05-02] MEDS: MELOXICAM (MOBIC) 7.5 MG TAB PO (07:56)
[2018-05-02] MEDS: TAMSULOSIN 0.4 MG CAP PO (07:57)
[2018-05-02] MEDS: CLOPIDOGREL 75 MG TAB PO (07:57)
[2018-05-02] MEDS: LACTIC ACID 12% LOTION 225 GM BTL TOP (07:57)
[2018-05-02] MEDS: PREGABALIN 75 MG CAP(LYRICA) PO (07:57)
[2018-05-02] MEDS: THIAMINE HCL 200 MG/2 ML VIAL (J3411) IV (07:58)
[2018-05-02] MEDS: SENOKOT S TAB PO (08:13)
[2018-05-02] MEDS: TOUJEO 300 UNIT/ML SC (09:38)
[2018-05-02 11:46] LABS: BEDSIDE GLUCOSE 113 MG/DL (80-115)
[2018-05-02] MEDS: FLUBLOK(EGG FREE)(QUAD)INFLUENZA VACC 0.5ML SYRINGE (90682)18YRS&OLDER IM (15:07)
== END 2018-05-02 17:16 | disposition home or self-care (01) | DRG 420 ==
LOC: M MSPAV 04-28 11:29 → M ED 13:07 → M ED INP 15:35 → M ICU 17:47
PROVIDERS: General Practice
DX: E11.10 Type 2 diabetes mellitus with ketoacidosis without coma (principal); I63.9 Cerebral infarction, unspecified; I12.9 Hypertensive chronic kidney disease with stage 1 through stage 4 chronic kidney disease, or unspecified chronic kidney disease; N18.3 Chronic kidney disease, stage 3 (moderate); N31.9 Neuromuscular dysfunction of bladder, unspecified; E55.9 Vitamin D deficiency, unspecified; E78.5 Hyperlipidemia, unspecified; N40.0 Benign prostatic hyperplasia without lower urinary tract symptoms; E03.9 Hypothyroidism, unspecified; Z91.14 Patient's other noncompliance with medication regimen; G47.33 Obstructive sleep apnea (adult) (pediatric); E66.9 Obesity, unspecified; Z79.899 Other long term (current) drug therapy; Z79.4 Long term (current) use of insulin; Z88.6 Allergy status to analgesic agent; Z91.040 Latex allergy status; Z88.8 Allergy status to other drugs, medicaments and biological substances; J44.9 Chronic obstructive pulmonary disease, unspecified; M19.90 Unspecified osteoarthritis, unspecified site; E11.51 Type 2 diabetes mellitus with diabetic peripheral angiopathy without gangrene; E11.319 Type 2 diabetes mellitus with unspecified diabetic retinopathy without macular edema

== ENCOUNTER 2018-06-20 12:54 | Day surgery (SDC) | payer OTHER ==
[2018-06-20] MEDS: FUROSEMIDE 20 MG TAB PO (09:00)
[2018-06-20] MEDS: hydroCHLOROthiazide 25 MG TAB PO (09:00)
[2018-06-20] MEDS: LOSARTAN 50 MG TAB PO (09:00)
[2018-06-20 13:46] LABS: BEDSIDE GLUCOSE 290 MG/DL (80-115)
[2018-06-20] MEDS: LR 1,000 ML IV (13:58)
[2018-06-20] MEDS ORDERED: dexameTHASONE 4 MG/ML 1ML VIAL (J1100) As Ordered (15:55)
[2018-06-20] MEDS ORDERED: ROCURONIUM BROMIDE 50 MG/5 ML VIAL As Ordered (15:55)
[2018-06-20] MEDS ORDERED: PROPOFOL 200 MG/20 ML VIAL As Ordered ×2 (15:55→17:30)
[2018-06-20] MEDS ORDERED: ONDANSETRON 4MG/2ML VIAL (J2405) As Ordered (15:55)
[2018-06-20] MEDS ORDERED: HEPARIN SOD (PORCINE) 5000 UNITS/ML VIAL As Ordered ×2 (15:55)
[2018-06-20] MEDS ORDERED: fentaNYL 250 MCG/5 ML INJECTION (J3010) As Ordered (15:55)
[2018-06-20] MEDS ORDERED: NITROGLYCERIN IN D5W 25MG/250ML (100MCG/ML) As Ordered ×2 (15:55→16:00)
[2018-06-20] MEDS ORDERED: LIDOCAINE 2% INJ 100 MG/5 ML SDV (FOR ANES.) As Ordered (15:55)
[2018-06-20] MEDS ORDERED: MIDAZOLAM INJ 2 MG/2 ML VIAL (J2250) As Ordered (15:56)
[2018-06-20] MEDS: THROMBIN SOLN 20,000 UNITS KIT As Ordered (17:07)
[2018-06-20] MEDS: HEPARIN SOD (PORCINE) 5000 UNITS/ML VIAL As Ordered (17:07)
[2018-06-20] MEDS: HumuLIN R (REGULAR) INSULIN (NovoLIN R) **100U/ML** PER UNIT As Ordered ×2 (17:25→18:26)
[2018-06-20] MEDS ORDERED: ePHEDrine SULFATE 25 MG/5 ML(5MG/ML) SYRINGE As Ordered (17:34)
[2018-06-20] MEDS ORDERED: PHENYLephrine HCL 500 MCG/5 ML (100MCG/ML) SYRINGE (J2370) As Ordered (17:34)
[2018-06-20] MEDS ORDERED: SUGAMMADEX SODIUM 500 MG/5 ML VIAL (BRIDION) As Ordered (18:09)
[2018-06-20] MEDS: LIDOCAINE 1% SDV INJ 30 ML VIAL As Ordered (18:21)
[2018-06-20] MEDS: BUPIVACAINE HCL 0.5% 30 ML VIAL As Ordered (18:22)
[2018-06-20] MEDS ORDERED: ALBUTEROL 90 MCG/ACT 8GM HFA INHALER INH (18:30)
[2018-06-20] MEDS ORDERED: BISACODYL 10 MG SUPP PR (18:30)
[2018-06-20] MEDS ORDERED: ACETAMINOPHEN TAB 650MG DOSE (2X325MG) PO (18:30)
[2018-06-20] MEDS ORDERED: ONDANSETRON 4MG/2ML VIAL (J2405) IV (18:30)
[2018-06-20] MEDS ORDERED: MOM 30ML SUSPENSION UDC PO (18:30)
[2018-06-20] MEDS: ONDANSETRON 4MG/2ML VIAL (J2405) IV (18:45)
[2018-06-20 18:49] LABS: BEDSIDE GLUCOSE 206 MG/DL (80-115)
[2018-06-20] MEDS: NS 1,000 ML IV (19:00)
[2018-06-20] MEDS: LABETALOL HCL 100 MG/20 ML VIAL IV ×3 (19:00→19:05)
[2018-06-20] MEDS ORDERED: METOCLOPRAMIDE INJ 10MG/2ML VIAL (J2765) As Ordered (19:01)
[2018-06-20] MEDS: fentaNYL 100 MCG/2 ML INJECTION (J3010) IV ×2 (19:03→19:17)
[2018-06-20] MEDS: METOCLOPRAMIDE INJ 10MG/2ML VIAL (J2765) IV (19:04)
[2018-06-20] MEDS: HumaLOG INSULIN (NovoLOG) PER UNIT SC (21:00)
[2018-06-20] MEDS ORDERED: HumaLOG INSULIN (NovoLOG) PER UNIT SC (21:00)
[2018-06-20] MEDS: DOCUSATE SODIUM 100 MG CAP PO (21:29)
[2018-06-20] MEDS: PREGABALIN 75 MG CAP(LYRICA) PO (21:30)
[2018-06-20] MEDS: SENOKOT S TAB PO (21:30)
[2018-06-20 21:40] LABS: BEDSIDE GLUCOSE 244 MG/DL (80-115)
[2018-06-20] MEDS: ANEXSIA, NORCO 7.5MG/325MG TABLET(HYDROCODONE/APAP) PO (21:47)
[2018-06-20] MEDS: AMITRIPTYLINE 25 MG TAB PO (21:48)
[2018-06-20] MEDS ORDERED: GLUCAGON FOR INJ 1 MG VIAL (J1610) SC (22:15)
[2018-06-20] MEDS ORDERED: GLUCOSE 4 GM CHEW TABLET PO (22:15)
[2018-06-20] MEDS ORDERED: DEXTROSE 50% 50 ML SYRINGE IV (22:15)
[2018-06-20] MEDS: cloNIDine 0.1 MG TAB PO (22:26)
[2018-06-21 05:30] LABS: HEMOGLOBIN 13.2 g/dl (13.5-17.5); MEAN CORPUSCULAR HGB CONC 32.2 g/dl (32.0-36.5); MEAN CORPUSCULAR VOLUME 86.9 fl (80.0-96.0); PLATELET COUNT, AUTOMATED 281 10^3/uL (150-450); RED BLOOD COUNT 4.72 10^6/uL (4.30-6.10); RED CELL DISTRIBUTION WIDTH 13.5 % (11.5-14.5); WHITE BLOOD COUNT 14.8 10^3/uL (4.0-10.0)
[2018-06-21 05:44] LABS: ANION GAP 9 MEQ/L (8-16); BLOOD UREA NITROGEN 32 MG/DL (7-18); CALCIUM LEVEL 8.3 MG/DL (8.8-10.2); CARBON DIOXIDE LEVEL 25 MEQ/L (21-32); CHLORIDE LEVEL 102 MEQ/L (98-107); CREATININE FOR GFR 1.11 MG/DL (0.70-1.30); GLOMERULAR FILTRATION RATE > 60.0 (>49); GLUCOSE, FASTING 233 MG/DL (70-100); SODIUM LEVEL 136 MEQ/L (136-145)
[2018-06-21] MEDS: LEVOTHYROXINE 75MCG TABLET (0.075MG) PO (06:15)
[2018-06-21] MEDS: ANEXSIA, NORCO 7.5MG/325MG TABLET(HYDROCODONE/APAP) PO (06:16)
[2018-06-21] MEDS ORDERED: HumaLOG INSULIN (NovoLOG) PER UNIT SC (07:30)
[2018-06-21] MEDS: HumaLOG INSULIN (NovoLOG) PER UNIT SC (07:30)
[2018-06-21] MEDS ORDERED: MELOXICAM (MOBIC) 7.5 MG TAB PO (09:00)
[2018-06-21] MEDS ORDERED: LACTIC ACID 12% LOTION 225 GM BTL TOP (09:00)
[2018-06-21] MEDS: ATORVASTATIN 20 MG TAB PO (09:28)
[2018-06-21] MEDS: FUROSEMIDE 20 MG TAB PO (09:29)
[2018-06-21] MEDS: SENOKOT S TAB PO (09:29)
[2018-06-21] MEDS: LOSARTAN 50 MG TAB PO (09:29)
[2018-06-21] MEDS: CLOPIDOGREL 75 MG TAB PO (09:29)
[2018-06-21] MEDS: DOCUSATE SODIUM 100 MG CAP PO (09:29)
[2018-06-21] MEDS: PREGABALIN 75 MG CAP(LYRICA) PO (09:30)
[2018-06-21] MEDS: hydroCHLOROthiazide 25 MG TAB PO (09:30)
[2018-06-30] MEDS ORDERED: VITAMIN D 50,000 UNITS CAPSULE (ERGOCALCIFEROL 1.25MG) PO (09:00)
== END 2018-06-21 12:18 | disposition home or self-care (01) ==
LOC: M SDC 12:54 → M ICU 19:38
DX: I61.9 Nontraumatic intracerebral hemorrhage, unspecified (principal); I65.22 Occlusion and stenosis of left carotid artery; E11.22 Type 2 diabetes mellitus with diabetic chronic kidney disease; I12.9 Hypertensive chronic kidney disease with stage 1 through stage 4 chronic kidney disease, or unspecified chronic kidney disease; I69.998 Other sequelae following unspecified cerebrovascular disease; E78.5 Hyperlipidemia, unspecified; N18.3 Chronic kidney disease, stage 3 (moderate); I73.9 Peripheral vascular disease, unspecified; N40.1 Benign prostatic hyperplasia with lower urinary tract symptoms; N31.9 Neuromuscular dysfunction of bladder, unspecified; E03.9 Hypothyroidism, unspecified; E11.40 Type 2 diabetes mellitus with diabetic neuropathy, unspecified; M86.179 Other acute osteomyelitis, unspecified ankle and foot; M15.0 Primary generalized (osteo)arthritis; J45.909 Unspecified asthma, uncomplicated; J44.9 Chronic obstructive pulmonary disease, unspecified; R06.83 Snoring; G47.33 Obstructive sleep apnea (adult) (pediatric); J30.89 Other allergic rhinitis; E66.9 Obesity, unspecified; Z68.38 Body mass index [BMI] 38.0-38.9, adult; Z88.6 Allergy status to analgesic agent; Z88.8 Allergy status to other drugs, medicaments and biological substances; Z91.040 Latex allergy status; Z79.899 Other long term (current) drug therapy; Z79.4 Long term (current) use of insulin; Z86.14 Personal history of Methicillin resistant Staphylococcus aureus infection; Z87.891 Personal history of nicotine dependence; Z98.41 Cataract extraction status, right eye; Z98.42 Cataract extraction status, left eye; Z96.1 Presence of intraocular lens
CPT/HCPCS: 35301

== ENCOUNTER → 2018-07-12 | Outpatient (CLI) | payer OTHER ==
[~2018-07-12] MED LIST changes: +AMLO10TA4 PO; -AMLO5TAB2 PO; +AMLO5TAB4 PO; +AMMO12LO TOP; +BREO1INH INH; +CEPH500C PO; +CLOP75TA2 PO; +D-CA1KIT XX; -DRIS50002 PO; +DRIS50003 PO; +FLOM0.4C39 PO; +FURO20TA2 PO; +HUMA75IN2 SC; +INSUHUMDS SC; +LEVO75TA4 PO; -LOSA50TA20 PO; +LOSA50TA73 PO; +MOBI4TAB PO; +NORC7.5T35 PO; +PRAV40TA2 PO; +TIZA-208 PO; +TIZA4CAP PO; -TIZA4CAP3 PO
--- NOTE | 2018-07-12 08:00 | REP ---
Clinical: Status post left endarterectomy . Technique: Lugo scale and color Doppler evaluation using linear high frequency transducer Findings: Two-dimensional lugo scale and color images demonstrate minimal atheromatous plaquing with otherwise laminar flow and no appreciable narrowing. Color Doppler interrogation demonstrates normal arterial wave patterns and velocities with elements of spectral broadening. Normal flow direction is appreciated in the bilateral vertebral arteries. Hematoma measuring approximately 4.3 x 1.9 x 3.0 cm surrounds the left carotid bulb consistent with recent surgery. RIGHT (cm/s) LEFT (cm/s) ICA peak systolic velocity 62.4 58.0 ICA diastolic velocity 17.9 17.6 ECA peak systolic velocity 103.1 50 8.1 CCA peak systolic velocity 72.7 73.7 ICA/CCA ratio 0.86 0.79 Impression: 1. No hemodynamically significant areas of narrowing or stenosis appreciated. Based on set standards narrowing falls within the less than 50% range. 2. Postsurgical hematoma surrounding the left carotid bulb region. Electronically Signed by Myron Garcia MD 07/12/2018 07:51 A
== END ==
LOC: M RAD 06:55
PROVIDERS: ATTEND Surgery Vascular Surgery
DX: I65.23 Occlusion and stenosis of bilateral carotid arteries (principal)

== ENCOUNTER → 2019-01-24 | Outpatient (CLI) | payer OTHER ==
[~2019-01-24] MED LIST changes: -/ATOR40TA OR; -/FENO48TA PO; -/TIOT18INH; -AMLO10TA4 PO; +AMLO10TA5 PO; -AMLO5TAB4 PO; +AMLO5TAB6 PO; +HYDR-2541 PO; +LIPI1TAB2 OR; -LOSA50TA73 PO; +LOSA50TA88 PO; +NORC1TAB8 PO; -NORC7.5T35 PO; +SPIR1CAP; -TIZA-208 PO; +TIZA4TAB4 PO; +TRIC1TAB PO
--- NOTE | 2019-01-24 10:50 | REP ---
Clinical: Carotid stenosis history of left endarterectomy. Comparison: 07/12/2018 . Technique: Lugo scale and color Doppler evaluation using linear high frequency transducer Findings: Two-dimensional lugo scale and color images demonstrate mild intimal thickening and noncalcified plaque material along the right carotid system as well as atherosclerotic plaquing with notable luminal narrowing involving the left carotid bulb and visualized internal carotid artery. RIGHT (cm/s) LEFT (cm/s) ICA peak systolic velocity 85.9 50.3 ICA diastolic velocity 35.8 19.9 ECA peak systolic velocity 125.0 132.0 CCA peak systolic velocity 93.2 113.0 ICA/CCA ratio 1.03 0.44 Impression: Based on set standards, narrowing of the bilateral internal carotid arteries remains in the less than 50% range. However, visible narrowing to the left carotid bulb and internal carotid artery is appreciated suggesting actual narrowing approaching 50%. Consider MRA for definitive evaluation. Electronically Signed by Myron Garcia MD 01/24/2019 10:41 A
== END ==
LOC: M RAD 08:34
PROVIDERS: ATTEND Surgery Vascular Surgery
DX: Z86.79 Personal history of other diseases of the circulatory system (principal)

== ENCOUNTER 2019-06-08 08:48 | Emergency (ER) | payer OTHER ==
[~2019-06-08] VITALS: Ht 180.3 cm; Wt 121.4 kg
[~2019-06-08 08:48] MED LIST changes: -GLIM4TAB PO; +GLIM4TAB3 PO
[2019-06-08 08:58] VITALS: BP 180/89
[2019-06-08] MEDS ORDERED: TETANUS/DIPHTHERIA TOX ADSORB ADULT 0.5ML SYR/VIAL (90714) IM ONE (09:00)
--- NOTE | 2019-06-08 09:35 | REP ---
Single view chest: New 06/08/2019. Indication: Chest trauma. Comparison: 09/16/2017. Findings: There are no osseous fractures or lung contusions detected. There is no pleural effusion or pneumothorax. The cardiomediastinal silhouette is unremarkable. Impression: No acute cardiopulmonary process. The Electronically Signed by Rosendo Roman DO 06/08/2019 09:26 A
[2019-06-08 10:29] LABS: ALBUMIN 2.7 GM/DL (3.2-5.2); ALT/SGPT 35 U/L (12-78); AMYLASE 33 U/L (25-115); BILIRUBIN,DIRECT < 0.1 MG/DL (0.0-0.2); BILIRUBIN,TOTAL 0.4 MG/DL (0.2-1.0); BLOOD UREA NITROGEN 32 MG/DL (7-18); CHLORIDE LEVEL 101 MEQ/L (98-107); CK-MB VALUE MASS 6.3 NG/ML (<3.6); CPK CREATINE PHOSPHOKINASE 274 U/L (39-308); CREATININE FOR GFR 1.36 MG/DL (0.70-1.30); ETHYL ALCOHOL (ETHANOL) < 0.003 % (0.000-0.010); GLOMERULAR FILTRATION RATE 56.3 (>49); GLUCOSE, FASTING 413 MG/DL (70-100); LIPASE 146 U/L (73-393); SODIUM LEVEL 135 MEQ/L (136-145); TOTAL PROTEIN 6.8 GM/DL (6.4-8.2); TROPONIN I < 0.02 NG/ML (< 0.10)
--- NOTE | 2019-06-08 10:43 | REP ---
CT brain without contrast: History: Trauma. Comparison brain CT study April 26, 2018. CT findings: Digital interactive art director views are unremarkable. The patient is edentulous. Bone window settings show no evidence of skull fracture. There is left frontal and left periorbital scalp hematoma. Vascular calcifications noted in the distal internal carotid arteries. No intraorbital abnormality is seen. There is moderate generalized volume loss. There is no evidence of intracranial hemorrhage. There is an old left frontal lobe infarct again noted unchanged. No acute infarct, mass, extra-axial fluid collection or midline shift is seen. Impression: Moderate generalized volume loss. Old left frontal lobe infarct unchanged from the prior study. There is left frontal and left periorbital scalp hematoma. No skull fracture is seen. Vascular calcification is noted. No acute intracranial abnormality. Electronically Signed by Rebel Miller MD 06/08/2019 11:10 A
--- NOTE | 2019-06-08 10:43 | REP ---
CT study of the cervical spine without contrast: History: Trauma. Technique: Helical scanning is acquired and overlapping 2 mm high resolution axial images were generated and reviewed at bone and soft tissue window settings. Coronal and sagittal multiplanar re-formations images are generated. CT findings: There is no evidence of cervical spine element fracture. No skull base fracture is seen. Cervical vertebral body heights are preserved. Alignment is normal. Facet joints are normally aligned bilaterally at each cervical level on multiplanar re-formations images. There is no evidence of intraspinal or paraspinal hematoma. No extra vertebral abnormality is seen. There are mild degenerative spondylosis changes. There is a levoconvex curvature on coronal multiplanar re-formation images. Facet osteoarthritis is noted right more so than left. Impression: Mild degenerative spondylosis changes, otherwise negative CT study of the cervical spine without contrast. No fracture seen. Electronically Signed by Rebel Milelr MD 06/08/2019 11:10 A
--- NOTE | 2019-06-08 10:45 | REP ---
Maxillofacial CT study without contrast: History: Trauma. Findings: There is a left superolateral periorbital hematoma and left frontal hematoma. No intraorbital hematoma is seen. No orbital or paranasal sinus fracture is seen. Zygomatic arches are intact. Paranasal sinuses remain clear. The nasal bone is intact. Inferior maxillary spine shows discontinuity and this may reflect an inferior maxillary spine fracture. No other facial fracture is appreciated. The patient is edentulous. No mandibular fracture is seen. Impression: Possible inferior maxillary spine chip fracture. Left periorbital scalp hematoma. Otherwise negative maxillofacial CT study. Electronically Signed by Rebel Miller MD 06/08/2019 11:10 A
[2019-06-08 11:31] LABS: CARBON DIOXIDE LEVEL 19 MEQ/L (21-32)
--- NOTE | 2019-06-08 19:04 | ECGEPIP ---
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
--- NOTE | 2019-06-11 16:52 | ED PDOC ---
Post-Departure Follow-Up dr ayala faxed formal reprot of ct max fac for fu Fay Nuñez MD Jun 11, 2019 16:52
== END 2019-06-08 13:11 | disposition left against medical advice (07) ==
LOC: EDBD 08:48 → M ED 08:48
DX: S05.92XA Unspecified injury of left eye and orbit, initial encounter (principal); S06.0X0A Concussion without loss of consciousness, initial encounter; E16.2 Hypoglycemia, unspecified; S00.03XA Contusion of scalp, initial encounter; W01.0XXA Fall on same level from slipping, tripping and stumbling without subsequent striking against object, initial encounter; Y92.481 Parking lot as the place of occurrence of the external cause; M47.812 Spondylosis without myelopathy or radiculopathy, cervical region; Z86.73 Personal history of transient ischemic attack (TIA), and cerebral infarction without residual deficits; E11.9 Type 2 diabetes mellitus without complications; I10 Essential (primary) hypertension; R94.31 Abnormal electrocardiogram [ECG] [EKG]; F17.210 Nicotine dependence, cigarettes, uncomplicated; Z88.2 Allergy status to sulfonamides; Z88.6 Allergy status to analgesic agent; Z91.040 Latex allergy status; Z79.4 Long term (current) use of insulin; Z79.82 Long term (current) use of aspirin; Z79.899 Other long term (current) drug therapy
CPT/HCPCS: 70450; 70486; 71045; 72125; 80047; 80048; 80076; 82150; 82550; 82553; 83690; 90471; 93005; 93041; 94760; 99284; G0480

== ENCOUNTER 2019-06-21 13:01 | Inpatient (IN) | payer OTHER ==
[~2019-06-21] VITALS: Ht 180.3 cm; Wt 113.2 kg
[2019-06-21] MEDS: INSULIN HUMAN REGULAR 100 UNITS in NS 99 ML IV SCH ×2 (02:33→17:48)
[2019-06-21] MEDS: LOSARTAN 50 MG TAB PO SCH (09:00)
--- NOTE | 2019-06-21 13:53 | REP ---
Clinical: Cerebrovascular accident. Comparison: 06/08/2019 . Findings: Atrophy with periventricular leukomalacia and microvascular ischemic changes are appreciated. Old left frontal lobe infarct suggested. The ventricles and sulci are symmetric. Lugo-white differentiation is maintained. There is no evidence for acute intracranial hemorrhage, mass/mass effect, pathology or infarction. No extra-axial fluid collection. Calvarium is intact. Paranasal sinuses and mastoid air cells are clear. Impression: Atrophy and microvascular ischemic changes. No acute intracranial hemorrhage, infarction, or mass/mass effect. Electronically Signed by Myron Garcia MD 06/21/2019 01:44 P
--- NOTE | 2019-06-21 14:03 | ECGEPIP ---
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
--- NOTE | 2019-06-21 14:04 | REP ---
Clinical: Acute cerebrovascular accident . Comparison: 06/08/2019 . Findings: The mediastinum and cardiac silhouette are stable and within normal limits for portable technique. The lung doshi are clear without acute consolidation, effusion, or pneumothorax. Skeletal structures are intact. Impression: No acute cardiopulmonary process appreciated. Electronically Signed by Myron Garcia MD 06/21/2019 01:56 P
[2019-06-21] MEDS ORDERED: FAMO40TA3 PO (14:12)
[2019-06-21] MEDS ORDERED: CLOP75TA2 PO (14:12)
[2019-06-21 14:34] LABS: BASO # 0.1 10^3/uL (0.0-0.2); BASO % 0.5 % (0.0-1.0); EOS % 0.3 % (0.0-3.0); HEMATOCRIT 47.7 % (42.0-52.0); HEMOGLOBIN 15.1 g/dl (13.5-17.5); LYMPH # 1.9 10^3/uL (1.5-5.0); LYMPH % 15.5 % (24.0-44.0); MEAN CORPUSCULAR HEMOGLOBIN 27.8 pg (27.0-33.0); MEAN CORPUSCULAR HGB CONC 31.7 g/dl (32.0-36.5); MEAN CORPUSCULAR VOLUME 87.7 fl (80.0-96.0); MONO # 0.6 10^3/uL (0.0-0.8); MONO % 4.7 % (0.0-5.0); NEUTROPHILS # 9.6 10^3/uL (1.5-8.5); NEUTROPHILS % 78.6 % (36.0-66.0); PLATELET COUNT, AUTOMATED 315 10^3/uL (150-450); RED BLOOD COUNT 5.44 10^6/uL (4.30-6.10); WHITE BLOOD COUNT 12.2 10^3/uL (4.0-10.0)
[2019-06-21 14:45] LABS: INR 1.02; PROTHROMBIN TIME 13.1 SECONDS (11.8-14.0)
[2019-06-21 14:46] LABS: PARTIAL THROMBOPLASTIN TIME 22.2 SECONDS (25.0-38.4)
[2019-06-21 15:11] LABS: ALT/SGPT 35 U/L (12-78); BILIRUBIN,DIRECT 0.1 MG/DL (0.0-0.2); BILIRUBIN,TOTAL 0.5 MG/DL (0.2-1.0); BLOOD UREA NITROGEN 32 MG/DL (7-18); CALCIUM LEVEL 8.9 MG/DL (8.8-10.2); CARBON DIOXIDE LEVEL 26 MEQ/L (21-32); CHLORIDE LEVEL 83 MEQ/L (98-107); CK-MB VALUE MASS 7.6 NG/ML (<3.6); CPK CREATINE PHOSPHOKINASE 497 U/L (39-308); FREE T4 1.12 NG/DL (0.76-1.46); GLOMERULAR FILTRATION RATE 34.1 (>49); MAGNESIUM LEVEL 2.2 MG/DL (1.8-2.4); MB/CK RELATIVE INDEX 1.53 (< OR =4); POTASSIUM SERUM 6.6 MEQ/L (3.5-5.1); SODIUM LEVEL 120 MEQ/L (136-145); TOTAL PROTEIN 7.1 GM/DL (6.4-8.2); TROPONIN I < 0.02 NG/ML (< 0.10)
[2019-06-21] MEDS ORDERED: HumuLIN R (REGULAR) INSULIN (NovoLIN R) **100U/ML** PER UNIT IV ONE (15:30)
[2019-06-21] MEDS ORDERED: INSULIN HUMAN REGULAR 100 UNITS in NS 99 ML IV SCH (15:38)
[2019-06-21] MEDS ORDERED: CALCIUM GLUCONATE 1,000 MG in D5W MINI-BAG PLUS 100 ML IV ONE (15:45)
[2019-06-21] MEDS ORDERED: INSULIN IV RATE CHANGE DOCUMENTATION ML/HR XX SCH (15:45)
[2019-06-21] MEDS: NS 1,000 ML IV SCH ×2 (15:53→21:27)
[2019-06-21 16:24] LABS: GLUCOSE, FASTING 1086 MG/DL (70-100)
[2019-06-21 16:35] VITALS: BP 147/85
[2019-06-21 17:00] VITALS: BP 146/70
[2019-06-21] MEDS ORDERED: DEXTROSE 50% 50 ML SYRINGE IV PRN (17:00)
[2019-06-21] MEDS ORDERED: GLUCOSE 4 GM CHEW TABLET PO PRN (17:00)
[2019-06-21] MEDS ORDERED: GLUCAGON FOR INJ 1 MG VIAL (J1610) SC PRN (17:00)
[2019-06-21 17:20] LABS: ABG O2 SATURATION 96.9 % (95.0-99.0); ABG PARTIAL PRESSURE CO2 42.8 mmHg (35.0-45.0); ABG PARTIAL PRESSURE O2 88.3 mmHg (75.0-100.0); ABG STANDARD HCO3 25.3 MEQ/L (22.0-26.0); ABG TOTAL CO2 27.4 MEQ/L (23.0-31.0); ABG pH (ARTERIAL) 7.402 UNITS (7.350-7.450)
[2019-06-21 17:42] LABS: BILIRUBIN, URINE MANUAL NEGATIVE (NEGATIVE); GLUCOSE, URINE (UA) MANUAL 4+(1000 MG/DL) mg/dL (NEGATIVE); KETONE, URINE MANUAL 1+ mg/dL (NEGATIVE); UROBILINOGEN, URINE MANUAL NORMAL (NORMAL)
[2019-06-21 17:50] LABS: BACTERIA, URINE SMALL AMOUNT; HYALINE CAST, URINE NONE SEEN /lpf (0-1); RBC, URINE 0-1 /hpf (0-3); SQUAMOUS EPITHELIAL CELL URINE SMALL AMOUNT /hpf (SMALL AMT)
[2019-06-21] MEDS ORDERED: PANTOPRAZOLE 40MG INJ (PROTONIX) (C9113) IV SCH (18:00)
[2019-06-21 18:06] LABS: CALCIUM LEVEL 9.3 MG/DL (8.8-10.2); CREATININE FOR GFR 2.05 MG/DL (0.70-1.30); GLOMERULAR FILTRATION RATE 35.1 (>49); POTASSIUM SERUM 5.3 MEQ/L (3.5-5.1)
[2019-06-21] MEDS: INSULIN IV RATE CHANGE DOCUMENTATION ML/HR XX SCH ×5 (18:48→23:19)
--- NOTE | 2019-06-21 19:14 | HPEPDOC ---
General Date of Admission Jun 21, 2019 at 15:36 Date of Service: Jun 21, 2019 Chief Complaint The patient is a 63-year-old male admitted with a reason for visit of Diabetes. Source: Patient Exam Limitations: No limitations Timing/Duration: Unsure Severity: Moderate Associated Symptoms: Weakness History of Present Illness This is a 63-year-old male who states that for the 2-3 days prior to admission he was unable to move except with great difficulty due to weakness. He also states that he was unable to urinate. The patient is a known diabetic; he states he was out of insulin for an extended period for multiple reasons. Unfortunately, the patient is also known to be noncompliant with his insulin. Patient states he has been able to eat, although he has been noncompliant with his diet as well. He has not had any nausea or vomiting, fever or chills. The patient also mentions that he has bedbugs at home. He gives a variable history of whether these have been eradicated. He was also seen in the emergency room a week or so ago for fall injury. He was ruled out for stroke at that time, although he has had one in the past about a year ago. He denies any significant residual deficits. Home Medications Scheduled Amitriptyline HCl (Amitriptyline HCl) 75 Mg Tab, 75 MG PO QHS, (Reported) Atorvastatin Calcium (Atorvastatin Calcium) 80 Mg Tab, 80 MG PO DAILY, (Reported) Clopidogrel Bisulfate (Clopidogrel) 75 Mg Tablet, 75 MG PO DAILY, (Reported) Ergocalciferol (Vitamin D2) (Drisdol) 50,000 Unit Cap, 50,000 UNIT PO QMONTH, (Reported) Famotidine (Famotidine) 40 Mg Tablet, 40 MG PO DAILY, (Reported) Furosemide (Furosemide) 20 Mg Tab, 20 MG PO DAILY, (Reported) Levothyroxine Sodium (Levothyroxine Sodium) 75 Mcg Tab, 75 MCG PO DAILY, (Reported) Losartan Potassium (Losartan Potassium) 50 Mg Tab, 50 MG PO DAILY, (Reported) Scheduled PRN Albuterol Sulfate (Ventolin Hfa) 108 Mcg/Act Aer, 2 PUFFS INH Q4H PRN for SHORTNESS OF BREATH, (Reported) Ammonium Lactate (Ammonium Lactate) 12 % Lot, 1 DOSE TOP DAILY PRN for DRY SKIN, (Reported) APPLY TO FEET Hydrocodone/Acetaminophen ([place] 7.5-325 Tablet) 1 Tab Tab, 1 TAB PO TID PRN for PAIN, (Reported) Tizanidine HCl (Tizanidine HCl) 4 Mg Tab, 4 MG PO TID PRN for PAIN, (Reported) Allergies Coded Allergies: TAPE (Verified Allergy, Unknown, 06/21/19) redness metformin (Verified Allergy, Unknown, 06/21/19) diarrhea simvastatin (Verified Allergy, Unknown, 06/21/19) muscle aches ENVIROMENTAL (Verified Adverse Reaction, Mild, NASAL CONGESTION, 06/13/18) aspirin (Verified Adverse Reaction, Unknown, 06/21/19) upset stomach celecoxib (Verified Adverse Reaction, Unknown, 06/21/19) weakness ibuprofen (Verified Adverse Reaction, Unknown, 06/21/19) weakness Past Medical History Medical History Past medical history is remarkable for essential hypertension, dyslipidemia, qrf-psixmve-asallvrqh diabetes mellitus, chronic kidney disease stage III, peripheral vascular disease, atherosclerotic vascular disease with history of carotid stenosis with endarterectomy, history of CVA, COPD, obstructive sleep apnea for which he is supposed to be on CPAP, bed bug infestation, benign prostatic hypertrophy, neurogenic bladder, osteoarthritis, hypothyroidism, osteomyelitis to the foot Surgical History Surgical history includes umbilical hernia repair, right elbow repair, L4-L5 fusion, bilateral cataract surgery, bilateral carpal tunnel release, left carotid endarterectomy Family History Family history per the patient is inclusive of congestive heart failure, "cardiomegaly", breast cancer, diabetes mellitus, gangrene--he states that most if not all of his family members are Social History * Smoker: former Smoker (patient states he quit at the age of 14) Alcohol: sober (for 17 years) Drugs: denies Psychosocial History: No pertinent psych hx Patient is classified as disabled. Patient lives alone. Patient has had issues with bedbug infestation in his home. A-FIB/CHADSVASC A-FIB History Current/History of A-Fib/PAF?: No Current PO Anticoag Therapy: No Review of Systems Other systems 10 systems review is otherwise negative except as stated in the HPI. Physical Examination General Exam: Positive: Alert, No Acute Distress Eye Exam: Positive: PERRLA, Other Eye Symptoms (the patient has a fading bruise to the region of his left eye and eyebrow) ENT Exam: Positive: Tongue Midline, Other ENT (oral mucosa and teeth are dry, he has poor dentition) Neck Exam: Positive: Supple; Negative: JVD, thyromegaly, +2 carotid pulse wo bruit, Lymphadenopathy, Other Chest Exam: Positive: Clear to auscultation, Normal air movement Heart Exam: Positive: Rate Normal; Negative: Tachycardic, Bradycardic, Regular Rhythm, Irregular Rhythm, Normal S1, Normal S2, Gallops, Murmurs, Rubs, Other Telemetry: Positive: No significant arrhythmia Abdomen Exam: Positive: Normal bowel sounds, Soft, Other (the patient has moderate central obesity; he was also found to have urinary retention of up to 1 L.); Negative: Tenderness, Hepatospenomegaly Extremity Exam: Positive: Normal pulses, Other (has joint changes consistent with arthritis); Negative: Clubbing, Cyanosis, Edema Skin Exam: Positive: Lesion (the patient has multiple lesions resembling large insect bites distributed over his extremities and trunk that he attributes to bedbugs.), Other skin issue (he also has a large ecchymotic bruise to the base of spine at his left buttock) Neuro Exam: Positive: Normal Speech, Normal Tone, Sensation Intact, Cranial Nerves 3-12 NL Psych Exam: Positive: Mental status NL, Mood NL Vital Signs Vital Signs Date Time Temp Pulse Resp B/P (MAP) Pulse Ox O2 Delivery O2 Flow Rate FiO2 06/21/19 17:00 91 20 146/70 (95) 97 Room Air 06/21/19 16:35 98.7 Laboratory Data Labs 24H Laboratory Tests 2 06/21/19 14:24: Immature Granulocyte % (Auto) 0.4, Neutrophils (%) (Auto) 78.6H, Lymphocytes (%) (Auto) 15.5L, Monocytes (%) (Auto) 4.7, Eosinophils (%) (Auto) 0.3, Basophils (%) (Auto) 0.5, Neutrophils # (Auto) 9.6H, Lymphocytes # (Auto) 1.9, Monocytes # (Auto) 0.6, Eosinophils # (Auto) 0.0, Basophils # (Auto) 0.1, Nucleated Red Blood Cells % (auto) 0.0, Prothrombin Time 13.1, Prothromb Time International Ratio 1.02, Activated Partial Thromboplast Time 22.2L, Anion Gap 11, Glomerular Filtration Rate 34.1L, Calcium Level 8.9, Phosphorus Level 4.0, Magnesium Level 2.2, Total Bilirubin 0.5, Direct Bilirubin 0.1, Aspartate Amino Transf ( AST/SGOT) 19, Alanine Aminotransferase (ALT/SGPT) 35, Alkaline Phosphatase 199H, Total Creatine Kinase 497H, Creatine Kinase MB 7.6H, Creatine Kinase MB Relative Index 1.53, Troponin I < 0.02, Total Protein 7.1, Albumin 3.0L, Albumin/Globulin Ratio 0.73L, Thyroid Stimulating Hormone (TSH) 2.240, Free Thyroxine 1.12 06/21/19 17:09: Blood Gas Bicarbonate Standard 25.3, Arterial Blood pH 7.402, Arterial Blood Partial Pressure CO2 42.8, Arterial Blood Partial Pressure O2 88.3, Arterial Blood Total CO2 27.4, Arterial Blood HCO3 26.0, Arterial Blood Base Excess 1.0, Arterial Blood Oxygen Saturation 96.9 06/21/19 17:19: Anion Gap 10, Glomerular Filtration Rate 35.1L, Calcium Level 9.3, Estimated Mean Plasma Glucose 355H, Hemoglobin A1c 14.0 06/21/19 17:29: Urine Color (ELOISA) LT YELLOW, Urine Appearance (ELOISA) CLEAR, Urine pH (ELOISA) 5.0, Urine Specific [place] (ELOISA) 1.010, Urine Protein 3+H, Bedside Urine Glucose (UA) 4+(1000 MG/DL)H, Bedside Urine Ketones (LAB) 1+H, Bedside Urine Blood TRACEH, Bedside Urine Nitrite (LAB) NEGATIVE, Bedside Urine Bilirubin (LAB) NEGATIVE, Bedside Urine Urobilinogen (LAB) NORMAL, Bedside Urine Leukocyte Esterase (L NEGATIVE, Urine Sediment Examination PERFORMED, Urine RBC 0-1, Urine WBC 0-1, Urine Squamous Epithelial Cells SMALL AMOUNT, Urine Bacteria SMALL AMOUNTH, Urine Hyaline Casts NONE SEEN CBC/BMP Laboratory Tests 06/21/19 14:24 06/21/19 17:19 Assessment/Plan 1. Hyperglycemia. Patient has hyperosmolar nonketotic hyperglycemia. Patient has been placed in the ICU, will be treated with an insulin drip. The patient does not have acidosis or elevated anion gap. Once this is resolved we are hoping to get him back to his usual insulin regimen. This will likely be difficult as the patient does have a significant history of noncompliance. 2. Hyponatremia. This is pseudohyponatremia; serum sodium of 120 corrects to 136-144, in presence of serum glucose of 1086. 3. Hyperkalemia. Anticipated to be transient; as sodium and glucose corrects with insulin potassium should correct as well. 4. Hypertension. Patient has not been compliant with his medications. We will at least restore his last known dose of losartan and added other agents for blood pressure control as needed. 5. Chronic kidney disease stage III. Patient likely has acute on chronic kidney disease as he does have dehydration superimposed on his disease; we anticipate improvement with IV hydration. 6. Bedbug infestation. The patient does have multiple lesions that would be consistent with new and old bites. However, no insects were seen in his hair or elsewhere with aggressive physical exam. Patient will need decontamination anyway with packaging of his clothing. 7. Diabetic foot ulcer. Patient does have an active ulcer to his right lateral heel. It is about 1.5 cm in diameter. There is no active drainage. Patient does have a history of osteomyelitis to the foot. We will try to obtain a wound care consult. 8. Urinary retention. Patient has complained of urinary retention. With standing the patient has urinated over 900 mL into a urinal. We will need to monitor and to measure. By history he has a history of benign prostatic hypertrophy and neurogenic bladder. Plan / VTE VTE Prophylaxis Ordered?: Yes (heparin) Plan IVF: Initiate Activity: Continue Current Medications: Replete Electrolytes IV, Other Med: (continues with insulin drip) Diagnostics: Check Labs, Repeat Labs in AM Anticipated Discharge: Home Advanced Directives: MOLST Form is available (apparently, it has been signed incorrectly and will need to be redone) BARBI RADER MD Jun 21, 2019 19:14
[2019-06-21 20:00] VITALS: BP 147/75
[2019-06-21 20:10] LABS: CALCIUM LEVEL 9.5 MG/DL (8.8-10.2); CREATININE FOR GFR 2.04 MG/DL (0.70-1.30); GLOMERULAR FILTRATION RATE 35.3 (>49)
[2019-06-21] MEDS: AMITRIPTYLINE 25 MG TAB PO SCH (21:18)
[2019-06-21] MEDS: HEPARIN SOD (PORCINE) 5000 UNITS/ML VIAL SQ SCH (21:18)
[2019-06-21 22:00] VITALS: BP 139/80
[2019-06-21] MEDS ORDERED: ACETAMINOPHEN TAB 650MG DOSE (2X325MG) PO PRN (22:15)
[2019-06-21] MEDS ORDERED: METHOCARBAMOL 500 MG TAB PO PRN (22:15)
[2019-06-21] MEDS: D5W/0.45% SODIUM CHLORIDE 1,000 ML IV SCH (23:34)
[2019-06-21 23:50] LABS: VENOUS BASE EXCESS -1.2 (-2.0-2.0); VENOUS HCO3 22.3 MEQ/L (23.0-27.0); VENOUS O2 SATURATION 99.4 % (60.0-80.0); VENOUS PARTIAL PRESSURE O2 204.4 mmHg (30.0-50.0); VENOUS PH 7.434 UNITS (7.330-7.430); VENOUS STANDARD HCO3 23.6 MEQ/L; VENOUS TOTAL CO2 23.3 MEQ/L (24.0-28.0)
[2019-06-22] VITALS (8 sets, daily range): BP systolic 124–170; BP diastolic 66–98
[2019-06-22 00:34] LABS: CALCIUM LEVEL 9.4 MG/DL (8.8-10.2); CREATININE FOR GFR 1.72 MG/DL (0.70-1.30); POTASSIUM SERUM 4.5 MEQ/L (3.5-5.1)
[2019-06-22] MEDS: INSULIN IV RATE CHANGE DOCUMENTATION ML/HR XX SCH ×5 (01:29→08:07)
[2019-06-22] MEDS: D5W/0.45% SODIUM CHLORIDE 1,000 ML IV SCH ×2 (04:17→09:16)
[2019-06-22 04:57] LABS: VENOUS BASE EXCESS -1.6 (-2.0-2.0); VENOUS HCO3 25.3 MEQ/L (23.0-27.0); VENOUS O2 SATURATION 99.1 % (60.0-80.0); VENOUS PARTIAL PRESSURE CO2 50.4 mmHg (38.0-50.0); VENOUS PARTIAL PRESSURE O2 169.8 mmHg (30.0-50.0); VENOUS PH 7.318 UNITS (7.330-7.430); VENOUS STANDARD HCO3 23.2 MEQ/L; VENOUS TOTAL CO2 26.8 MEQ/L (24.0-28.0)
[2019-06-22 05:29] LABS: CALCIUM LEVEL 8.9 MG/DL (8.8-10.2); CREATININE FOR GFR 1.53 MG/DL (0.70-1.30); GLOMERULAR FILTRATION RATE 49.2 (>49); POTASSIUM SERUM 4.3 MEQ/L (3.5-5.1)
[2019-06-22] MEDS: HEPARIN SOD (PORCINE) 5000 UNITS/ML VIAL SQ SCH ×3 (06:11→21:09)
[2019-06-22] MEDS: LEVOTHYROXINE 75MCG TABLET (0.075MG) PO SCH (06:11)
[2019-06-22] MEDS: CLOPIDOGREL 75 MG TAB PO SCH ×2 (09:00→09:07)
[2019-06-22] MEDS: ATORVASTATIN 20 MG TAB PO SCH (09:07)
[2019-06-22] MEDS: LOSARTAN 50 MG TAB PO SCH (09:08)
[2019-06-22 09:09] LABS: VENOUS HCO3 25.4 MEQ/L (23.0-27.0); VENOUS PARTIAL PRESSURE CO2 44.1 mmHg (38.0-50.0); VENOUS PARTIAL PRESSURE O2 62.4 mmHg (30.0-50.0); VENOUS PH 7.379 UNITS (7.330-7.430); VENOUS STANDARD HCO3 24.4 MEQ/L; VENOUS TOTAL CO2 26.8 MEQ/L (24.0-28.0)
[2019-06-22] MEDS ORDERED: GLUCAGON FOR INJ 1 MG VIAL (J1610) SC PRN (10:15)
[2019-06-22] MEDS ORDERED: DEXTROSE 50% 50 ML SYRINGE IV PRN (10:15)
[2019-06-22] MEDS ORDERED: GLUCOSE 4 GM CHEW TABLET PO PRN (10:15)
[2019-06-22 10:38] LABS: CALCIUM LEVEL 8.6 MG/DL (8.8-10.2); CREATININE FOR GFR 1.38 MG/DL (0.70-1.30); GLOMERULAR FILTRATION RATE 55.4 (>49); POTASSIUM SERUM 5.1 MEQ/L (3.5-5.1)
[2019-06-22] MEDS: LEVEMIR (INSULIN DETEMIR) 1 UNITS/0.01ML SC SCH ×2 (11:22→21:10)
[2019-06-22] MEDS: HumaLOG INSULIN (NovoLOG) PER UNIT SC SCH ×2 (12:35→16:55)
[2019-06-22] MEDS: PANTOPRAZOLE 40MG TAB (PROTONIX) PO SCH (13:26)
--- NOTE | 2019-06-22 14:57 | IPNPDOC ---
Text Note Date of Service The patient was seen on 06/22/19. NOTE SUBJECTIVE: Mr. Sullivan has unfortunately exhibited remarkable noncompliance behavior. He was willing to take his blood pressure medications, which he has not taken for quite some time. However, he is refusing his Plavix and other medications. The patient has been on insulin drip for treatment of hyperosmolar hyperglycemic nonketotic syndrome. His been noncompliant with his insulin at home and is currently objecting to glucose monitoring. OBJECTIVE: Physical exam: Please see vital signs below HEENT: Oral mucosa is moist, patient is cleaning his dentures, neck is supple with no adenopathy, Cardiovascular: Regular rate and rhythm, no murmur. Respiratory: Remarkably clear to auscultation with good air movement. Abdomen: Notable central obesity, otherwise soft, nontender, nondistended. Extremities: No peripheral edema and pedal pulses are palpable, patient does have ulcer wound to right lateral heel. Neuro: Patient has no focal neuromotor or sensory deficit. Psych: Patient exhibits poor judgment and insight ASSESSMENT/PLAN: 1. Hyperosmolar hyperglycemic nonketotic syndrome. Patient was admitted with a serum glucose of 1086. With insulin drip and aggressive IV hydration glucose has come down to 211 this morning. We will attempt to transition the patient back to his last known basal bolus insulin regimen for his ayu-qcktafi-jibipbeow diabetes mellitus. He is reporting 150 units subcutaneous twice a day, but we will start with 50 units of Levemir twice a day and adjust accordingly. He has been placed on a consistent carbohydrate diet, but his compliance remains variable. The patient can be otherwise transferred out of the ICU to the [facility] floor. 2. Hypertension. On admission the patient had had systolic blood pressures ranging 175 up to 198. We have restarted the patient, his blood pressure management regimen which includes losartan. Current systolics range 150 - 170. Patient had previously also been on hydrochlorothiazide. It appears this was changed to Lasix. This may affect his creatinine; the addition of Norvasc may be helpful. Again, there is a question of compliance. 3. Skin lesions. There are 2 types of lesions of concern; one is that he appears to have multiple bites from bedbugs. These appear to be at varying stages of healing. We cannot unfortunately directly address his home environment. Additional lesion is that he does have a diabetic foot ulcer to his right lateral heel. It does not appear infected at this time, but does warrant being seen by wound care service. VS,Fishbone, I+O VS, Fishbone, I+O Laboratory Tests 06/21/19 17:19 06/21/19 19:15 06/21/19 23:43 06/22/19 04:48 06/22/19 09:02 Vital Signs Date Time Temp Pulse Resp B/P (MAP) Pulse Ox O2 Delivery O2 Flow Rate FiO2 06/22/19 12:00 97.1 77 20 150/67 (94) 95 Room Air I&O- Last 24 Hours up to 6 AM 06/22/19 06:00 Intake Total 3645 ml Output Total 2175 ml Balance 1470 ml BARBI RADER MD Jun 22, 2019 14:57
[2019-06-22] MEDS: ANEXSIA, NORCO 7.5MG/325MG TABLET(HYDROCODONE/APAP) PO PRN (18:54)
[2019-06-22] MEDS ORDERED: HumaLOG INSULIN (NovoLOG) PER UNIT SC SCH (21:00)
[2019-06-22] MEDS: AMITRIPTYLINE 25 MG TAB PO SCH (21:11)
[2019-06-23] MEDS: LEVOTHYROXINE 75MCG TABLET (0.075MG) PO SCH (05:34)
[2019-06-23] MEDS: ANEXSIA, NORCO 7.5MG/325MG TABLET(HYDROCODONE/APAP) PO PRN (05:35)
[2019-06-23] MEDS: HEPARIN SOD (PORCINE) 5000 UNITS/ML VIAL SQ SCH (05:36)
[2019-06-23 06:00] VITALS: BP 140/70
[2019-06-23] MEDS: HumaLOG INSULIN (NovoLOG) PER UNIT SC SCH (07:30)
[2019-06-23 08:47] VITALS: BP 140/70
[2019-06-23] MEDS: ATORVASTATIN 20 MG TAB PO SCH (08:47)
[2019-06-23] MEDS: LOSARTAN 50 MG TAB PO SCH (08:47)
[2019-06-23] MEDS: PANTOPRAZOLE 40MG TAB (PROTONIX) PO SCH (08:47)
[2019-06-23] MEDS: CLOPIDOGREL 75 MG TAB PO SCH (08:47)
[2019-06-23] MEDS ORDERED: LEVEMIR (INSULIN DETEMIR) 1 UNITS/0.01ML SC SCH (09:00)
[2019-06-23] MEDS ORDERED: ATOR80TA59 PO (09:56)
[2019-06-23] MEDS ORDERED: TOUJ1.2I SC (09:56)
[2019-06-23] MEDS ORDERED: LOSA50TA88 PO (09:56)
[2019-06-23] MEDS ORDERED: CLOP75TA2 PO (09:56)
--- NOTE | 2019-06-23 16:16 | DS.PDOC ---
Discharge Summary General Date of Admission Jun 21, 2019 at 15:36 Date of Discharge June 23, 2019 Primary Care Physician: Lucy Parker H Discharge Summary PROCEDURES PERFORMED DURING STAY: None. ADMITTING DIAGNOSES: Hyperglycemia, hyperosmolar hyperglycemic nonketotic syndrome DISCHARGE DIAGNOSES: Hyperglycemia resolved, hyperosmolar hyperglycemic nonketotic syndrome resolved, dra-ckkejny-ruqoiecru diabetes mellitus, essential hypertension, history of CVA, atherosclerotic vascular disease, chronic kidney disease stage III, bedbug infestation, noncompliance COMPLICATIONS/CHIEF COMPLAINT: Diabetes. HISTORY OF PRESENT ILLNESS/HOSPITAL COURSE: Mr. Sullivan is a 63-year-old male with gzl-mgcedtk-tjpyjnauj diabetes mellitus who has unfortunately, remarkably n oncompliant. He apparently was either out of his insulin. Her not taking his insulin for an extended period, perhaps as long as 2 weeks. The patient states he was able to eat without difficulty, but he did not maintain a compliant diet. The patient developed remarkable weakness and inability to urinate. Upon presentation to the emergency room he was noted to have a serum glucose of 1086. He did not have acidosis or an anion gap. He was admitted with hyperosmolar hyperglycemic nonketotic syndrome. The patient was placed in the ICU. He was given aggressive IV hydration and insulin drip. His glucose did eventually come down to within normal limits. We were able to transition him to a basal bolus insulin regimen with a compliant diet with difficulty. Patient made multiple objections to glucose monitoring and felt that he was having Levemir "pushed" on him. We explained that Levemir, Lant us and Toujeo were all in the same insulin category. The patient is agreeable to resuming basal bolus insulin use at home for now. The patient did have hyperkalemia. This did correct as his serum glucose corrected. The patient had pseudohyponatremia on admission, the measured serum sodium of 120 corrected to 144. The patient had known chronic kidney disease stage III. He did have acute kidney injury due to inadequate intake and dehydration. Initial creatinine had been 2.10. This has come down to 1.38. This is his approximate baseline. The patient was noted to have a number of insect bites. He did disclose that he has bed bugs in his home. There are none found with him or his belongings on exam. The patient does have essential hypertension. He did have elevated systolic blood pressures upon admission. Patient had not been taking his blood pressure medications for quite some time. He was agreeable to taking them during this hospital stay. Hopefully he will be compliant after discharge.. DISCHARGE MEDICATIONS: Please see below. ALLERGIES: Please see below. PHYSICAL EXAMINATION ON DISCHARGE: VITAL SIGNS: Please see below. HEENT: Oral mucosa is moist, patient wears dentures, neck is supple with no adenopathy, Cardiovascular: Regular rate and rhythm, no murmur. Respiratory: Remarkably clear to auscultation with good air movement. Abdomen: Notable central obesity, otherwise soft, nontender, nondistended. Extremities: No peripheral edema and pedal pulses are palpable, patient does have ulcer wound to right lateral heel. Neuro: Patient has no focal neuromotor or sensory deficit. Skin: Has multiple insect bite lesions to his extremities and trunk of varying stages of healing Psych: Patient exhibits poor judgment and insight LABORATORY DATA: Please see below. IMAGING: PROGNOSIS: ACTIVITY: As tolerated. DIET: Consistent carbohydrate DISCHARGE PLAN: The patient is strongly encouraged to follow-up with his primary care provider within the next week or so. We have provided him with prescriptions for for his insulin and his blood pressure medications for which he has been noncompliant. We have also spoken with the pharmacy and they confirm that they will deliver his medications to him. DISPOSITION: 01 Home, Self-Care. DISCHARGE INSTRUCTIONS: 1. . ITEMS TO FOLLOWUP ON ON OUTPATIENT: 1. . DISCHARGE CONDITION: Stable. TIME SPENT ON DISCHARGE: 45 minutes. Vital Signs/I&Os Vital Signs Date Time Temp Pulse Resp B/P (MAP) Pulse Ox O2 Delivery O2 Flow Rate FiO2 06/23/19 08:47 140/70 06/23/19 06:05 16 06/23/19 06:00 97.4 77 98 Room Air I&O- Last 24 Hours up to 6 AM 06/23/19 06:00 Intake Total 1440 ml Balance 1440 ml Laboratory Data Labs 24H Laboratory Tests 2 06/22/19 16:29: Bedside Glucose (Misc Panel) 365H 06/22/19 20:58: Bedside Glucose (Misc Panel) 501*H 06/22/19 21:00: Bedside Glucose (Misc Panel) 468H 06/23/19 06:58: Bedside Glucose (Misc Panel) 353H FSBS Laboratory Tests Test 06/22/19 16:29 06/22/19 20:58 06/22/19 21:00 06/23/19 06:58 Range/Units Bedside Glucose (Misc Panel) 365 501 468 353 80-115 MG/DL Discharge Medications Scheduled Amitriptyline HCl (Amitriptyline HCl) 75 Mg Tab, 75 MG PO QHS, (Reported) Atorvastatin Calcium (Atorvastatin Calcium) 80 Mg Tab, 80 MG PO DAILY Clopidogrel Bisulfate (Clopidogrel) 75 Mg Tablet, 75 MG PO DAILY Ergocalciferol (Vitamin D2) (Drisdol) 50,000 Unit Cap, 50,000 UNIT PO QMONTH, (Reported) Famotidine (Famotidine) 40 Mg Tablet, 40 MG PO DAILY, (Reported) Furosemide (Furosemide) 20 Mg Tab, 20 MG PO DAILY, (Reported) Insulin Glargine,Hum.rec.anlog (Toujeo Solostar) 300 Unit/1 Ml Insuln.pen, 100 UNIT SC BID Levothyroxine Sodium (Levothyroxine Sodium) 75 Mcg Tab, 75 MCG PO DAILY, (Reported) Losartan Potassium (Losartan Potassium) 50 Mg Tab, 50 MG PO DAILY Scheduled PRN Albuterol Sulfate (Ventolin Hfa) 108 Mcg/Act Aer, 2 PUFFS INH Q4H PRN for SHORTNESS OF BREATH, (Reported) Ammonium Lactate (Ammonium Lactate) 12 % Lot, 1 DOSE TOP DAILY PRN for DRY SKIN, (Reported) APPLY TO FEET Hydrocodone/Acetaminophen ([place] 7.5-325 Tablet) 1 Tab Tab, 1 TAB PO TID PRN for PAIN, (Reported) Tizanidine HCl (Tizanidine HCl) 4 Mg Tab, 4 MG PO TID PRN for PAIN, (Reported) Allergies Coded Allergies: TAPE (Verified Allergy, Unknown, 06/21/19) redness metformin (Verified Allergy, Unknown, 06/21/19) diarrhea simvastatin (Verified Allergy, Unknown, 06/21/19) muscle aches ENVIROMENTAL (Verified Adverse Reaction, Mild, NASAL CONGESTION, 06/13/18) aspirin (Verified Adverse Reaction, Unknown, 06/21/19) upset stomach celecoxib (Verified Adverse Reaction, Unknown, 06/21/19) weakness ibuprofen (Verified Adverse Reaction, Unknown, 06/21/19) weakness BARBI RADER MD Jun 23, 2019 16:16
== END 2019-06-23 11:15 | disposition home or self-care (01) | DRG 420 ==
LOC: M ED 13:01 → M ED INP 15:36 → M ICU 16:31 → M MS5PR 06-22 14:20
PROVIDERS: ADMIT Internal Medicine; ATTEND Internal Medicine
DX: E11.00 Type 2 diabetes mellitus with hyperosmolarity without nonketotic hyperglycemic-hyperosmolar coma (NKHHC) (principal); E11.621 Type 2 diabetes mellitus with foot ulcer; N17.9 Acute kidney failure, unspecified; L97.419 Non-pressure chronic ulcer of right heel and midfoot with unspecified severity; N18.3 Chronic kidney disease, stage 3 (moderate); E87.5 Hyperkalemia; N31.9 Neuromuscular dysfunction of bladder, unspecified; I12.9 Hypertensive chronic kidney disease with stage 1 through stage 4 chronic kidney disease, or unspecified chronic kidney disease; Z86.73 Personal history of transient ischemic attack (TIA), and cerebral infarction without residual deficits; I70.209 Unspecified atherosclerosis of native arteries of extremities, unspecified extremity; Z91.14 Patient's other noncompliance with medication regimen; E86.0 Dehydration; E87.1 Hypo-osmolality and hyponatremia; Z79.899 Other long term (current) drug therapy; Z88.6 Allergy status to analgesic agent; Z88.8 Allergy status to other drugs, medicaments and biological substances; R33.9 Retention of urine, unspecified; N40.0 Benign prostatic hyperplasia without lower urinary tract symptoms

== ENCOUNTER 2019-08-22 16:17 | Emergency (ER) | payer OTHER ==
[~2019-08-22 16:17] MED LIST changes: +FAMO40TA3 PO; -GLIM4TAB3 PO; +GLIM4TAB5 PO
[2019-08-22 16:35] LABS: ABG pH (ARTERIAL) 7.308 UNITS (7.350-7.450)
[2019-08-22 16:36] LABS: ABG BASE EXCESS -15.6 (-2.0-2.0); ABG HCO3 7.4 MEQ/L (22.0-26.0); ABG O2 SATURATION 99.4 % (95.0-99.0); ABG PARTIAL PRESSURE O2 243.6 mmHg (75.0-100.0); ABG TOTAL CO2 7.9 MEQ/L (23.0-31.0)
[2019-08-22 16:37] LABS: ABG PARTIAL PRESSURE CO2 15.2 mmHg (35.0-45.0)
[2019-08-22] MEDS ORDERED: ACETAMINOPHEN 650 MG SUPP PR ONE (17:00)
[2019-08-22 17:07] LABS: BASO # 0.1 10^3/uL (0.0-0.2); BASO % 0.3 % (0.0-1.0); HEMATOCRIT 52.5 % (42.0-52.0); HEMOGLOBIN 16.1 g/dl (13.5-17.5); LYMPH # 2.4 10^3/uL (1.5-5.0); LYMPH % 9.7 % (24.0-44.0); MEAN CORPUSCULAR HEMOGLOBIN 28.1 pg (27.0-33.0); MEAN CORPUSCULAR HGB CONC 30.7 g/dl (32.0-36.5); MEAN CORPUSCULAR VOLUME 91.6 fl (80.0-96.0); MONO # 1.6 10^3/uL (0.0-0.8); MONO % 6.5 % (0.0-5.0); NEUTROPHILS # 20.2 10^3/uL (1.5-8.5); NEUTROPHILS % 82.5 % (36.0-66.0); PLATELET COUNT, AUTOMATED 376 10^3/uL (150-450); RED BLOOD COUNT 5.73 10^6/uL (4.30-6.10); WHITE BLOOD COUNT 24.5 10^3/uL (4.0-10.0)
[2019-08-22] MEDS ORDERED: cefTRIAXone SOD 2 GM in D5W MINI-BAG PLUS 50 ML IV ONE (17:15)
--- NOTE | 2019-08-22 17:20 | REP ---
CT BRAIN WITHOUT IV CONTRAST: CT brain performed without IV contrast. COMPARISON: 06/21/2019 There is moderate atrophy. There is no midline shift or mass effect. Old left frontal and parietal infarcts are unchanged, when compared to the prior study. There is no acute intracranial hemorrhage, midline shift or mass effect. No extra-axial fluid collection is seen. Vascular calcifications are seen in the carotid siphon. There is moderate fluid in the left sphenoid sinus. IMPRESSION: Chronic atrophy and old left frontal and parietal infarcts. No acute intracranial hemorrhage. Moderate fluid in the left sphenoid sinus. Electronically Signed by Hank Lugo MD 08/23/2019 07:58 P
--- NOTE | 2019-08-22 17:22 | REP ---
CT CERVICAL SPINE WITHOUT CONTRAST: CT cervical spine performed without IV contrast. Sagittal and coronal reconstruction images are performed. There is no compression fracture. There is no malalignment. There is normal cervical lordosis with no prevertebral soft tissue swelling. Mild calcification is seen in the cervical disc spaces. There is diffuse narrowing and sclerosis at the posterior facet joints as well as mild spurring. There is no evidence of spinal stenosis. IMPRESSION: Degenerative changes without fracture or dislocation. Electronically Signed by Hank Lugo MD 08/23/2019 07:58 P
[2019-08-22 17:30] LABS: OSMOLALITY SERUM 362 MOSM/KG (280-301)
--- NOTE | 2019-08-22 17:31 | REP ---
AP PORTABLE CHEST: 08/22/2019. Comparison: 06/21/2019 Clinical history: Altered mental status. Findings: Lungs are mildly hypoinflated. CP angles are sharply defined. There is no lateral pleural thickening, effusion, infiltrate, atelectasis or mass. Heart is not enlarged. Aorta and airway intact. No widening of the mediastinum. Bones without acute finding. Impression: 1. Hypoinflated chest but no acute cardiopulmonary change seen. Electronically Signed by Anthony Burrows MD 08/22/2019 08:13 P
[2019-08-22 17:40] LABS: AMPHETAMINES LEVEL URINE NEGATIVE (NEGATIVE); BARBITURATES URINE NEGATIVE (NEGATIVE); BENZODIAZEPINES URINE NEGATIVE (NEGATIVE); CANNABINOIDS URINE POSITIVE (NEGATIVE); COCAINE METABOLITE URINE NEGATIVE (NEGATIVE); METHADONE URINE NEGATIVE (NEGATIVE); OPIATES URINE NEGATIVE (NEGATIVE); PHENCYCLIDINE URINE NEGATIVE (NEGATIVE)
[2019-08-22 18:10] LABS: ACETAMINOPHEN LEVEL < 2.0 UG/ML (10.0-30.0); ALBUMIN 3.2 GM/DL (3.2-5.2); ALT/SGPT 52 U/L (12-78); BILIRUBIN,DIRECT 0.2 MG/DL (0.0-0.2); BILIRUBIN,TOTAL 0.5 MG/DL (0.2-1.0); BLOOD UREA NITROGEN 50 MG/DL (7-18); CALCIUM LEVEL 9.2 MG/DL (8.8-10.2); CARBON DIOXIDE LEVEL 11 MEQ/L (21-32); CHLORIDE LEVEL 92 MEQ/L (98-107); CK-MB VALUE MASS 42.8 NG/ML (<3.6); CPK CREATINE PHOSPHOKINASE 5209 U/L (39-308); CREATININE FOR GFR 3.55 MG/DL (0.70-1.30); ETHYL ALCOHOL (ETHANOL) < 0.003 % (0.000-0.010); GLOMERULAR FILTRATION RATE 18.6 (>49); GLUCOSE, FASTING 773 MG/DL (70-100); MB/CK RELATIVE INDEX 0.82 (< OR =4); POTASSIUM SERUM 5.5 MEQ/L (3.5-5.1); SALICYLATE LEVEL 4.1 MG/DL (5.0-30.0); SODIUM LEVEL 135 MEQ/L (136-145); TOTAL PROTEIN 7.5 GM/DL (6.4-8.2); TROPONIN I 6.22 NG/ML (< 0.10)
[2019-08-22] MEDS ORDERED: INSULIN HUMAN REGULAR 100 UNITS in NS 99 ML IV SCH ×2 (18:15→21:30)
[2019-08-22] MEDS ORDERED: INSULIN IV RATE CHANGE DOCUMENTATION ML/HR XX SCH ×2 (18:15→21:30)
[2019-08-22] MEDS ORDERED: NS IV ONE (18:15)
[2019-08-22 18:26] LABS: MYOGLOBIN 24806 NG/ML (16-116)
--- NOTE | 2019-08-22 19:01 | REPVR ---
PROCEDURE INFORMATION: Exam: CT Chest Without Contrast Exam date and time: 08/22/2019 6:34 PM Age: 63 years old Clinical indication: Fever; Additional info: Sepsis TECHNIQUE: Imaging protocol: Computed tomography of the chest without contrast. Radiation optimization: All CT scans at this facility use at least one of these dose optimization techniques: automated exposure control; mA and/or kV adjustment per patient size (includes targeted exams where dose is matched to clinical indication); or iterative reconstruction. COMPARISON: CR PORTABLE CHEST X-RAY 08/22/2019 4:35 PM FINDINGS: Lungs: Unremarkable. No consolidation. No masses. Pleural space: Unremarkable. No pneumothorax. No pleural effusion. Heart: There is mild atherosclerotic calcification of the coronary arteries. Aorta: The aorta demonstrates mild atherosclerotic calcification. Lymph nodes: Unremarkable. No enlarged lymph nodes. Bones/joints: The spine demonstrates mild degenerative changes. Soft tissues: Unremarkable. IMPRESSION: No acute findings. Electronically signed by: Zia Marte On 08/22/2019 19:01:35 PM
[2019-08-22 19:07] LABS: INFLUENZA A AMPLIFICATION NEGATIVE (NEGATIVE); INFLUENZA B AMPLIFICATION NEGATIVE (NEGATIVE)
--- NOTE | 2019-08-22 19:07 | REPVR ---
PROCEDURE INFORMATION: Exam: CT Abdomen And Pelvis Without Contrast Exam date and time: 08/22/2019 6:34 PM Age: 63 years old Clinical indication: Fever; Additional info: Sepsis TECHNIQUE: Imaging protocol: Computed tomography of the abdomen and pelvis without contrast. Radiation optimization: All CT scans at this facility use at least one of these dose optimization techniques: automated exposure control; mA and/or kV adjustment per patient size (includes targeted exams where dose is matched to clinical indication); or iterative reconstruction. COMPARISON: No relevant prior studies available. FINDINGS: Liver: Normal. No mass. Gallbladder and bile ducts: Calculi or milk of calcium bile layer dependently in the gallbladder. Pancreas: Normal. No ductal dilation. Spleen: Normal. No splenomegaly. Adrenals: Normal. No mass. Kidneys and ureters: Hyperdense exophytic foci in the right kidney measure up to 2.6 cm. These may represent hyperdense cysts although correlation with ultrasound to exclude a solid mass suggested. Stomach and bowel: Unremarkable. No obstruction. No mucosal thickening. Appendix: No evidence of appendicitis. Intraperitoneal space: Unremarkable. No free air. No significant fluid collection. Vasculature: The aorta and iliac arteries demonstrates mild atherosclerotic calcification. Lymph nodes: Unremarkable. No enlarged lymph nodes. Bladder: Kelly catheter within the urinary bladder. Thickened bladder wall and air within the lumen of the bladder likely iatrogenic. Reproductive: Unremarkable as visualized. Bones/joints: Age indeterminate rib fracture left 9th rib. The spine demonstrates mild degenerative changes. Slight anterolisthesis L3 on L4 and slight retrolisthesis of L5 on S1. Soft tissues: Right inguinal hernia without incarceration. Other findings: Osteoporosis. IMPRESSION: 1. Calculi or milk of calcium bile layer dependently in the gallbladder. 2. Hyperdense exophytic foci in the right kidney measure up to 2.6 cm. These may represent hyperdense cysts although correlation with ultrasound to exclude a solid mass suggested. Electronically signed by: Zia Marte On 08/22/2019 19:06:54 PM
[2019-08-22] MEDS ORDERED: CLOP75TA2 PO (19:51)
[2019-08-22] MEDS ORDERED: LYRI150C PO (19:51)
[2019-08-22] MEDS ORDERED: MOBI4TAB PO (19:51)
[2019-08-22] MEDS ORDERED: LOSA50TA88 PO (19:53)
[2019-08-22] MEDS ORDERED: MED REC COMMENT (19:55)
[2019-08-22] MEDS ORDERED: BASA100I SC (20:01)
[2019-08-22] MEDS ORDERED: MUPI2OI TOP (20:08)
[2019-08-22] MEDS ORDERED: POTASSIUM CHLORIDE 10% LIQ 20 MEQ/15 ML UDC PO ONE (20:30)
[2019-08-22] MEDS ORDERED: HumuLIN R (REGULAR) INSULIN (NovoLIN R) **100U/ML** PER UNIT IV ONE ×2 (20:30→21:30)
[2019-08-22 21:45] VITALS: BP 114/59
--- NOTE | 2019-08-23 01:14 | REP ---
Clinical: Nasogastric tube placement . Comparison: 08/22/2019 . Findings: Nasogastric tube in satisfactory position. The mediastinum and cardiac silhouette are stable and within normal limits for portable technique. The lung doshi are clear without acute consolidation, effusion, or pneumothorax. Skeletal structures are intact. Impression: No acute cardiopulmonary process appreciated. Electronically Signed by Myron Garcia MD 08/23/2019 01:06 A
--- NOTE | 2019-08-24 13:09 | ECGEPIP ---
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
--- NOTE | 2019-08-24 13:12 | ECGEPIP ---
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
== END 2019-08-22 21:59 | disposition short-term general hospital (02) ==
LOC: EDBD 16:17 → M ED 16:17
DX: G93.41 Metabolic encephalopathy (principal); M62.82 Rhabdomyolysis; A41.9 Sepsis, unspecified organism; N17.9 Acute kidney failure, unspecified; I21.9 Acute myocardial infarction, unspecified; R00.0 Tachycardia, unspecified; M50.30 Other cervical disc degeneration, unspecified cervical region; K82.8 Other specified diseases of gallbladder; N28.89 Other specified disorders of kidney and ureter; J98.4 Other disorders of lung; E11.9 Type 2 diabetes mellitus without complications; I10 Essential (primary) hypertension; E78.5 Hyperlipidemia, unspecified; G47.33 Obstructive sleep apnea (adult) (pediatric); N40.0 Benign prostatic hyperplasia without lower urinary tract symptoms; E03.9 Hypothyroidism, unspecified; Z87.891 Personal history of nicotine dependence; Z88.2 Allergy status to sulfonamides; Z88.6 Allergy status to analgesic agent; Z88.8 Allergy status to other drugs, medicaments and biological substances; Z79.4 Long term (current) use of insulin; Z79.51 Long term (current) use of inhaled steroids; Z79.899 Other long term (current) drug therapy
CPT/HCPCS: 70450; 71045; 71250; 72125; 74176; 80048; 80076; 80307; 81001; 81002; 82140; 82550; 82553; 82803; 83605; 83874; 83930; 84443; 85025; 87040; 87502; 93005; 93041; 94760; 96365; 96366; 96374; 99285; G0480; J0696